=== PATIENT | female | born 1935 | race Caucasian/White ===

== ENCOUNTER 2020-04-08 08:05 | Outpatient (REF) | payer MEDICARE, SELFPAY | END 2020-04-08 08:06 | disposition home or self-care (01) | LOC: HO.HMGCLDS 08:05 | PROVIDERS: PCP Internal Medicine; Visit Provider Internal Medicine | DX: Z20.828 Contact with and (suspected) exposure to other viral communicable diseases (principal) | CPT/HCPCS: C9803; U0003 ==

== ENCOUNTER 2020-07-16 10:12 | Outpatient (REF) | payer MEDICARE, SELFPAY ==
[2020-07-16 10:59] LABS: MANUAL DIFF FLAG NO
[2020-07-16 11:05] LABS: Basophils Absolute Auto 0.1 X10*3/uL (0.0-0.2); Basophils Percent Auto 0.8 % (0-2); Eosinophils Absolute Auto 0.3 X10*3/uL (0.0-0.4); Eosinophils Percent Auto 3.6 % (0-4); Hematocrit 48.4 % (37-47); Hemoglobin 15.2 g/dl (12.0-16.0); Imm Gran Abs Auto 0.06 X10*3/uL (0.00-0.03); Imm Gran Pct Auto 0.8 % (0.0-0.4); Lymphocytes Absolute Auto 1.2 X10*3/uL (1.2-4.9); Lymphocytes Percent Auto 16.7 % (20-40); Mean Corpuscular HGB Conc 31.4 g/dl (31.0-35.0); Mean Corpuscular Hemoglobin 28.6 pg (27.0-33.0); Mean Corpuscular Volume 91.1 fL (80-98); Mean Platelet Volume 12.1 fL (9.4-12.3); Monocytes Absolute Auto 0.8 X10*3/uL (0.1-1.2); Monocytes Percent Auto 10.3 % (2-11); Neutrophils Absolute Auto 4.9 X10*3/uL (2.0-8.3); Neutrophils Percent Auto 67.8 % (45-73); Platelet Count 163 X10*3/uL (160-400); Red Blood Count 5.31 X10*6/uL (4.20-5.50); Red Cell Distribution Width 13.3 % (11.0-16.0); White Blood Count 7.3 X10*3/uL (4.8-10.8)
[2020-07-16 11:12] LABS: Estimated Average Glucose 157 mg/dL; Hemoglobin A1c % 7.1 %
[2020-07-16 11:47] LABS: Alanine Aminotransferase 20 U/L (0-31); Albumin Level 4.5 g/dL (3.5-5.0); Alkaline Phosphatase 69 U/L (39-117); Anion Gap 14 (12-20); Aspartate Amino Transferase 16 U/L (5-31); Bilirubin Total 0.7 mg/dL (0.0-1.0); Blood Urea Nitrogen 19 mg/dL (9-16); Calcium 9.8 mg/dL (8.4-10.2); Carbon Dioxide 25 mmol/L (22-29); Chloride 106 mmol/L (96-108); Cholesterol 165 mg/dL; Estimated Glomerular Filt Rate 43; Glucose Random 130 mg/dL (60-115); HDL Cholesterol 47 mg/dL; LDL Cholesterol Calculated 74 mg/dl; Potassium 4.9 mmol/L (3.3-5.1); Sodium 140 mmol/L (135-145); Total Protein 6.9 g/dL (6.5-8.0); Triglycerides 222 mg/dL
[2020-07-16 12:08] LABS: Creatinine Urine 60.32 mg/dL; Microalbum/Creatinine Ratio Ur 18.2 ug/mg cr
[2020-07-16 12:09] LABS: Free T4 (Free Thyroxine) 1.14 ng/dL (0.71-1.85); Thyroid Stimulating Hormone 1.56 uIU/mL (0.32-4.0); Vitamin D 25-OH Total 42.3 ng/mL (>30)
[2020-07-16 12:28] LABS: Folate > 20.0 ng/mL (> or = 4.0); Vitamin B12 997 pg/mL (200-900)
== END 2020-07-16 10:13 | disposition home or self-care (01) ==
LOC: HO.LAB 10:12
PROVIDERS: PCP Internal Medicine; Visit Provider Internal Medicine
DX: E11.65 Type 2 diabetes mellitus with hyperglycemia (principal); E03.9 Hypothyroidism, unspecified; I10 Essential (primary) hypertension; E78.00 Pure hypercholesterolemia, unspecified
CPT/HCPCS: 36415; 80053; 80061; 82043; 82306; 82607; 82746; 83036; 84439; 84443; 85025

== ENCOUNTER 2021-07-21 11:36 | Outpatient (REF) | payer MEDICARE, SELFPAY ==
[2021-07-21 13:38] LABS: MANUAL DIFF FLAG NO
[2021-07-21 13:39] LABS: Basophils Absolute Auto 0.1 X10*3/uL (0.0-0.2); Basophils Percent Auto 0.6 % (0-2); Eosinophils Absolute Auto 0.3 X10*3/uL (0.0-0.4); Eosinophils Percent Auto 3.7 % (0-4); Hematocrit 47.5 % (37.0-47.0); Hemoglobin 15.1 g/dl (12.0-16.0); Imm Gran Abs Auto 0.06 X10*3/uL (0.00-0.03); Imm Gran Pct Auto 0.7 % (0.0-0.4); Lymphocytes Absolute Auto 1.3 X10*3/uL (1.2-4.9); Lymphocytes Percent Auto 15.2 % (20-40); Mean Corpuscular HGB Conc 31.8 g/dl (31.0-35.0); Mean Corpuscular Hemoglobin 28.9 pg (27.0-33.0); Mean Platelet Volume 11.7 fL (9.4-12.3); Monocytes Absolute Auto 0.8 X10*3/uL (0.1-1.2); Monocytes Percent Auto 9.9 % (2-11); Neutrophils Absolute Auto 5.9 x10*3/uL (2.0-8.3); Neutrophils Percent Auto 69.9 % (45-73); Platelet Count 237 X10*3/uL (160-400); Red Blood Count 5.22 X10*6/uL (4.20-5.50); Red Cell Distribution Width 13.5 % (11.0-16.0); White Blood Count 8.5 X10*3/uL (4.8-10.8)
[2021-07-21 13:56] LABS: Alanine Aminotransferase 13 U/L (0-31); Albumin Level 4.3 g/dL (3.5-5.0); Alkaline Phosphatase 64 U/L (39-117); Anion Gap 15 (12-20); Aspartate Amino Transferase 14 U/L (5-31); Bilirubin Total 0.5 mg/dL (0.0-1.0); Blood Urea Nitrogen 22 mg/dL (9-16); Calcium 10.3 mg/dL (8.4-10.2); Carbon Dioxide 22 mmol/L (22-29); Chloride 107 mmol/L (96-108); Cholesterol 154 mg/dL; Estimated Glomerular Filt Rate 45; Glucose Random 118 mg/dL (60-115); HDL Cholesterol 41 mg/dL; LDL Cholesterol Calculated 55 mg/dl; Potassium 4.5 mmol/L (3.3-5.1); Sodium 139 mmol/L (135-145); Total Protein 6.8 g/dL (6.5-8.0); Triglycerides 294 mg/dL
[2021-07-21 14:13] LABS: Free T4 (Free Thyroxine) 1.14 ng/dL (0.71-1.85); Vitamin D 25-OH Total 43.8 ng/mL (>30)
[2021-07-21 14:27] LABS: Estimated Average Glucose 148 mg/dL; Hemoglobin A1c % 6.8 %
[2021-07-21 14:37] LABS: Creatinine Urine 60.97 mg/dL; Microalbum/Creatinine Ratio Ur 70.5 ug/mg cr
[2021-07-21 14:40] LABS: Folate > 20.0 ng/mL (> or = 4.0); Vitamin B12 800 pg/mL (200-900)
== END 2021-07-21 11:37 | disposition home or self-care (01) ==
LOC: HO.HMGCLDS 11:36
PROVIDERS: PCP Internal Medicine; Visit Provider Internal Medicine
DX: E11.65 Type 2 diabetes mellitus with hyperglycemia (principal); E78.00 Pure hypercholesterolemia, unspecified
CPT/HCPCS: 36415; 80053; 80061; 82043; 82306; 82607; 82746; 83036; 84439; 84443; 85025

== ENCOUNTER 2021-08-01 16:55 | Emergency (ER) | payer OTHER, MEDICARE, SELFPAY ==
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
[2021-08-01 17:19] VITALS: BP 163/76; BP 169/74; PULSE 82; PULSE 98; RESP 20; TEMP 36.7; O2SAT 97; BMI 33.4
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
[2021-08-01 19:27] VITALS: BP 162/90; PULSE 79; RESP 16; TEMP 36.6; O2SAT 95
[2021-08-01] MEDS: traMADoL HCL 50 MG TABLET PO (19:35)
[2021-08-01 21:55] VITALS: BP 148/77; PULSE 87; RESP 18; TEMP 36.9; O2SAT 96
[2021-08-01 22:00] LABS: Basophils Absolute Auto 0.1 X10*3/uL (0.0-0.2); Basophils Percent Auto 0.5 % (0-2); Eosinophils Absolute Auto 0.4 X10*3/uL (0.0-0.4); Eosinophils Percent Auto 2.6 % (0-4); Hematocrit 44.9 % (37.0-47.0); Hemoglobin 14.7 g/dl (12.0-16.0); Imm Gran Pct Auto 0.7 % (0.0-0.4); Lymphocytes Absolute Auto 1.4 X10*3/uL (1.2-4.9); Lymphocytes Percent Auto 9.7 % (20-40); MANUAL DIFF FLAG SCAN; Mean Corpuscular HGB Conc 32.7 g/dl (31.0-35.0); Mean Corpuscular Hemoglobin 29.3 pg (27.0-33.0); Mean Corpuscular Volume 89.4 fL (80.0-98.0); Mean Platelet Volume 10.9 fL (9.4-12.3); Monocytes Absolute Auto 1.6 X10*3/uL (0.1-1.2); Monocytes Percent Auto 11.4 % (2-11); Neutrophils Absolute Auto 10.8 x10*3/uL (2.0-8.3); Neutrophils Percent Auto 75.1 % (45-73); Platelet Count 234 X10*3/uL (160-400); Red Blood Count 5.02 X10*6/uL (4.20-5.50); Red Cell Distribution Width 13.3 % (11.0-16.0); SCAN SMEAR FLAG 1; White Blood Count 14.4 X10*3/uL (4.8-10.8)
[2021-08-01 22:05] LABS: INTERNATIONAL NORM RATIO 1.1 (0.9-1.1); Prothrombin Time 12.8 SEC (9.9-13.0)
[2021-08-01 22:08] LABS: Partial Thromboplastin Time 33.7 SEC (24.1-38.0)
[2021-08-01 22:14] LABS: Alanine Aminotransferase 16 U/L (0-31); Albumin Level 4.1 g/dL (3.5-5.0); Alkaline Phosphatase 67 U/L (39-117); Anion Gap 12 (12-20); Aspartate Amino Transferase 15 U/L (5-31); Bilirubin Total 0.5 mg/dL (0.0-1.0); Blood Urea Nitrogen 19 mg/dL (9-16); COVID-19 Test Negative (Negative); Calcium 10.3 mg/dL (8.4-10.2); Carbon Dioxide 24 mmol/L (22-29); Chloride 109 mmol/L (96-108); Creatinine Clr Calc Pharmacy 32.4; Estimated Glomerular Filt Rate 38; Glucose Random 179 mg/dL (60-115); Sodium 140 mmol/L (135-145); Total Protein 6.4 g/dL (6.5-8.0)
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
[2021-08-01 22:24] LABS: SLIDE REVIEW VERIFIED
[2021-08-01 23:22] VITALS: BP 146/70; PULSE 87; RESP 18; O2SAT 95
[2021-08-02] VITALS (7 sets, daily range): BP systolic 138–152; BP diastolic 64–95; PULSE 81–97; RESP 14–20; TEMP 36.6–36.9; O2SAT 94–96
[2021-08-02] MEDS: iohexoL 350 MG/ML 100 ML INFUS..BTL IV (00:22)
[2021-08-02] MEDS: traMADoL HCL 50 MG TABLET PO ×2 (06:23→11:21)
[2021-08-02 07:38] LABS: Glucose, Whole Blood 185 mg/dL (60-115)
--- NOTE | 2021-08-02 08:41 | PHA.MEDREC ---
Pharmacy Consult ? Medication Reconciliation Pharmacy has completed the medication reconciliation. No remarkable issues. Angie Granados, [facility]
--- NOTE | 2021-08-02 10:19 | MHC.CM.ED ---
Patient remains in ER. Physical therapy eval completed. Rehab is being recommended. [facility] not able to offer a bed. [facility] is reviewing. Met with patient and son, Regino at bedside. Copy of HCP obtained and placed in chart. If [facility] is not able to offer a bed, SNF choices: 1)[facility] 2) [facility]. Continue to monitor for d/c needs.
[2021-08-02] MEDS: Acetaminophen 325 MG TABLET 650 MG PO (11:20)
--- NOTE | 2021-08-02 11:58 | MHC.CM.ED ---
[facility] is able to offer a bed. They are in the process of obtaining insurance auth. Follow up orthopedic appointment has been arranged for 08/11 at 230pm. Continue to monitor for d/c needs.
--- NOTE | 2021-08-02 17:10 | MHC.CM.ED ---
Insurance authorization has not been obtained. Will touch base with [facility] liaison in the morning. Pt and family aware. Pt to remain in ED overnight. CM to follow for d/c needs.
[2021-08-03] VITALS (9 sets, daily range): BP systolic 116–152; BP diastolic 52–82; PULSE 75–92; RESP 14–22; TEMP 36.6–37.1; O2SAT 92–98
[2021-08-03] MEDS: traMADoL HCL 50 MG TABLET PO ×2 (00:43→10:33)
[2021-08-03] MEDS: Levothyroxine Sodium 125 MCG TABLET PO (05:18)
--- NOTE | 2021-08-03 05:18 | PC.NURSE ---
pt assisted on bedpan to void by marine technician and this RN. pt able to void, and is resting comfortably in bed. states pain is well controlled. +CSM to RLE
[2021-08-03 07:21] LABS: Glucose, Whole Blood 196 mg/dL (60-115)
[2021-08-03] MEDS: lisinopriL 10 MG TABLET PO (07:59)
[2021-08-03] MEDS: Cholecalciferol (Vitamin D3) 25 MCG TABLET 50 MCG PO (07:59)
[2021-08-03] MEDS: metFORMIN HCl 500 MG TABLET PO ×2 (07:59→21:28)
[2021-08-03] MEDS: Aspirin Enteric Coated 81 MG TABLET.DR PO (07:59)
[2021-08-03] MEDS: Folic Acid 1 MG TABLET PO (07:59)
[2021-08-03] MEDS: Cyanocobalamin (Vitamin B-12) 1,000 MCG TABLET 1000 MCG PO (08:00)
--- NOTE | 2021-08-03 12:01 | MHC.CM.ED ---
Received notification from [facility] that [facility] denied acute rehab. Regino made aware and would like to appeal the denial. Rossy at [facility] made aware. Continue to monitor for d/c needs.
[2021-08-03 13:41] LABS: Glucose, Whole Blood 132 mg/dL (60-115)
[2021-08-03] MEDS: Atorvastatin Calcium 10 MG TABLET PO (21:28)
--- NOTE | 2021-08-04 00:40 | PC.NURSE ---
pt assisted on bedpan to void
[2021-08-04 02:06] VITALS: BP 145/79; PULSE 83; RESP 22; O2SAT 92
[2021-08-04 04:06] VITALS: BP 128/60; PULSE 73; RESP 20; O2SAT 93
[2021-08-04] MEDS: Levothyroxine Sodium 125 MCG TABLET PO (06:02)
[2021-08-04 06:07] VITALS: BP 151/81; PULSE 90; RESP 20; O2SAT 94
--- NOTE | 2021-08-04 08:37 | PC.NURSE ---
pt assisted off bed pompa again. linens changed. raw reddness in folds of abdomen cleansed and cream applied. LLE elevated. brisk cap refill of toes and good csm
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
--- NOTE | 2021-08-04 10:44 | MHC.CM.ED ---
Addendum entered by Wendy Estes 08/04/21 10:56: Patient and daughter made aware of telephone call with [facility]. Original Note: Received telephone call from [facility] of [facility] about appeal to denial of acute rehab. Patient currently has a right bimalleolar fracture. Orthopedics didn't feel surgery was necessary at this time. She has a follow up appointment in 10 days. At that time, depending on how the fracture is healing, surgery may not be indicated. T/W explained patient is very independent at baseline, completes all of her ADL's by herself, still drives herself to doctors appointments, social events and stores as needed. Patient does not cook for herself, only because her sons dote on her and want to cook for her. She is aware that 3 hours of therapy would be required and she is an excellent candidate for acute rehab. She is very motivated to return to her baseline functional status as quickly as possible. Additional clinical information provided to Dora via fax. Continue to monitor for d/c needs.
--- NOTE | 2021-08-04 11:08 | PC.NURSE ---
up to commode w/o bearing weight on left foot.
[2021-08-04] MEDS: lisinopriL 10 MG TABLET PO (11:14)
[2021-08-04] MEDS: Cholecalciferol (Vitamin D3) 25 MCG TABLET 50 MCG PO (11:14)
[2021-08-04] MEDS: metFORMIN HCl 500 MG TABLET PO ×2 (11:14→20:44)
[2021-08-04 11:15] VITALS: BP 145/91; PULSE 102; RESP 18; O2SAT 97
[2021-08-04] MEDS: Folic Acid 1 MG TABLET PO (11:15)
[2021-08-04] MEDS: Aspirin Enteric Coated 81 MG TABLET.DR PO (11:15)
[2021-08-04 12:32] LABS: Appearance Urine CLEAR; Color Urine YELLOW; Glucose Urine UA NEG (NEG); Leukocyte Esterase Urine 3+ (NEG); Nitrite Urine NEG (NEG); Specific Gravity - Urine <= 1.005 (1.005-1.025); UACC Culture Trigger YES; Urine Blood NEG (NEG); Urine Ketones NEG (NEG); Urine Protein NEG (NEG-TRACE)
[2021-08-04 12:57] LABS: Squamous Epithelial Cell Urine 1+ /LPF
[2021-08-04 12:58] LABS: Bacteria Urine TRACE /LPF; RBC Urine 0 /HPF (0); Renal Epithelial Cells Urine TRACE /LPF
[2021-08-04 19:06] VITALS: BP 115/46; PULSE 89; RESP 15; TEMP 37; O2SAT 93
[2021-08-04] MEDS: Atorvastatin Calcium 10 MG TABLET PO (20:44)
[2021-08-05 02:56] VITALS: BP 87/60; PULSE 89; RESP 16; TEMP 36.7; O2SAT 92
[2021-08-05 03:01] VITALS: BP 104/63; PULSE 96; O2SAT 94
[2021-08-05] MEDS: Levothyroxine Sodium 125 MCG TABLET PO (07:42)
[2021-08-05] MEDS: Cyanocobalamin (Vitamin B-12) 1,000 MCG TABLET 1000 MCG PO (09:40)
[2021-08-05] MEDS: lisinopriL 10 MG TABLET PO (09:41)
[2021-08-05] MEDS: Folic Acid 1 MG TABLET PO (09:41)
[2021-08-05] MEDS: metFORMIN HCl 500 MG TABLET PO (09:41)
[2021-08-05] MEDS: Aspirin Enteric Coated 81 MG TABLET.DR PO (09:41)
[2021-08-05] MEDS: Cholecalciferol (Vitamin D3) 25 MCG TABLET 50 MCG PO (09:42)
--- NOTE | 2021-08-05 10:04 | MHC.CM.PN ---
Addendum entered by Jackie Zimmer 08/05/21 12:13: NEGATIVE COVID RESULTS SENT TO [facility]. THEY ARE REQUESTING 1600 TRANSPORT BE ARRANGED SON, PT AND NURSE AWARE [facility] PROVIDED A PHONE NUMBER OF [phone] FOR NURSE TO NURSE REPORT. NUMBER FORWARDED TO PTS NURSE Original Note: [facility] HAS AUTHORIZED ACUTE REHAB PER DISCUSSION WITH PT/FAMILY, PREFERENCE IS STILL [facility] IS ABLE TO TAKE PT AT 1600 HOURS PENDING NEG COVID RESULTS
[2021-08-05 10:39] LABS: COVID-19 Test Negative (Negative)
[2021-08-05 11:02] VITALS: BP 114/60; PULSE 90; RESP 18; TEMP 37.2; O2SAT 94
--- NOTE | 2021-08-05 11:03 | PC.NURSE ---
pt has been resting queitly with rle elevated. on and off bed pain and commode as needed. requires full assist for all transfers.
--- NOTE | 2021-08-05 11:52 | PC.NURSE ---
RN assumed care at 11am. Pt alert and oriented x4, calm and cooperative. Pt denies pain. Vitals stable. Pt educated on care plan and being discharged to facility, pt agrees to plan.
--- NOTE | 2021-08-05 12:30 | PC.NURSE ---
rn to rn with at [facility].
--- NOTE | 2021-08-05 15:36 | PC.NURSE ---
Pt alert and oriented x4, calm and cooperative. Denies pain at rest. Pt voiding without issues this shift. IV rmeoved. Vitals stable. Educated on dc and stated an understanding. Report given to rehab by EZEKIEL Tang.
[2021-08-05 15:37] VITALS: BP 116/74; PULSE 74; RESP 16; TEMP 37.1; O2SAT 95
== END 2021-08-05 15:38 | disposition skilled nursing facility (03) ==
PROVIDERS: Physician Assistant; Physician Assistant Medical; Emergency Provider Internal Medicine; PCP Internal Medicine
DX: S82.891A Other fracture of right lower leg, initial encounter for closed fracture (principal); M54.2 Cervicalgia; M25.571 Pain in right ankle and joints of right foot; M54.6 Pain in thoracic spine; R10.2 Pelvic and perineal pain; R51.9 Headache, unspecified; E11.9 Type 2 diabetes mellitus without complications; I10 Essential (primary) hypertension; V43.52XA Car driver injured in collision with other type car in traffic accident, initial encounter; Y93.9 Activity, unspecified; Y92.410 Unspecified street and highway as the place of occurrence of the external cause; Y99.9 Unspecified external cause status; Z20.822 Contact with and (suspected) exposure to COVID-19; Z79.899 Other long term (current) drug therapy; Z79.84 Long term (current) use of oral hypoglycemic drugs; Z79.82 Long term (current) use of aspirin
CPT/HCPCS: 29515; 36415; 51702; 70450; 71260; 72125; 73600; 73620; 74177; 80053; 81001; 81003; 82947; 85025; 85610; 85730; 87086; 87635; 97110; 97162; 97166; 99285; Q9967

== ENCOUNTER 2021-08-15 13:57 | Outpatient (REF) | payer OTHER, MEDICARE, SELFPAY ==
--- NOTE | ~2021-08-15 | XR_ITS ---
EXAMINATION: XR ANKLE, RIGHT CLINICAL INFORMATION: Pain right ankle. COMPARISON: None. TECHNIQUE: AP, lateral, and mortise views of the right ankle. FINDINGS: There is a minimally displaced oblique fracture distal fibula and oblique fracture medial malleolus distal tibia. There is bimalleolar soft tissue swelling. The ankle mortise and subtalar joints are normal. There is a small calcaneal heel and retrocalcaneal enthesophytes. There is a dorsal talonavicular joint and enthesophyte. XR/XR ankle RT min 3V IMPRESSION: Minimally displaced fracture lateral and medial malleoli with bimalleolar soft tissue swelling. Degenerative arthritic changes talonavicular joint. [id number]-[id number]-sized calcaneal heel and retrocalcaneal enthesophytes.
== END 2021-08-15 13:58 | disposition home or self-care (01) ==
LOC: HO.HOSX 13:57
PROVIDERS: Visit Provider Physician Assistant
DX: S82.891A Other fracture of right lower leg, initial encounter for closed fracture (principal)
CPT/HCPCS: 73610

== ENCOUNTER 2021-08-17 13:56 | Observation (INO) | payer OTHER, MEDICARE, SELFPAY ==
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
--- NOTE | 2021-08-17 | ECG_ITS ---
Test Reason : HTN Blood Pressure : / mmHG Vent. Rate : 088 BPM Atrial Rate : 088 BPM P-R Int : 156 ms QRS Dur : 102 ms QT Int : 360 ms P-R-T Axes : 071 -15 017 degrees QTc Int : 435 ms Normal sinus rhythm Minimal voltage criteria for LVH, may be normal variant ( Andrea product ) Cannot rule out Inferior infarct , age undetermined Abnormal ECG When compared with ECG of 11-MAY-2017 13:25, No significant change was found Referred By: Patricia Donnelly Electronically Signed By:MECCA MERINO MD
--- NOTE | ~2021-08-17 | XR_ITS ---
EXAMINATION: XR ANKLE, RIGHT CLINICAL INFORMATION: Follow-up fracture COMPARISON: Previous x-ray 08/17/2021 TECHNIQUE: AP, lateral, and mortise views of the right ankle. FINDINGS: There are fractures of the medial and lateral malleolus. These do not appear appreciably changed. No new fracture is seen. No ankle mortise widening is seen. There is soft tissue arterial calcification. There are calcaneal spurs. There is an overlying cast. XR/XR ankle RT min 3V IMPRESSION: No change in medial and lateral malleolar fractures.
--- NOTE | ~2021-08-17 | XR_ITS ---
EXAMINATION: XR ANKLE, RIGHT CLINICAL INFORMATION: Right ankle fracture COMPARISON: Previous x-ray most recent 08/15/2021 TECHNIQUE: AP view of the right ankle. FINDINGS: There is a new overlying cast. There is no change in alignment of the medial and lateral malleolar fractures. XR/XR ankle RT 2V IMPRESSION: No change in alignment of the medial and lateral malleolar fractures.
[2021-08-17 12:51] VITALS: BMI 34.0
[2021-08-17 12:55] VITALS: BP 132/59; PULSE 91; RESP 18; TEMP 36.7; O2SAT 98
[2021-08-17] MEDS: Lactated Ringers 1,000 ML 100 ML IVCONT (12:58)
[2021-08-17 13:07] LABS: Glucose, Whole Blood 118 mg/dL (60-115)
--- NOTE | 2021-08-17 13:44 | PC.NURSE ---
plan change for no surgical procedure due to wound at right ankle. plan to cast in preop, covid swab for admission, done and sent down.
[2021-08-17 14:22] LABS: COVID-19 Test Negative (Negative)
--- NOTE | 2021-08-17 15:10 | PC.NURSE ---
no surgery to be done due to open pressure wound on rt ankle. casted at bedside and to be admitted to observation. report to serjio tolentino on . transferred.
[2021-08-17 16:04] LABS: Glucose, Whole Blood 96 mg/dL (60-115)
[2021-08-17 16:26] VITALS: BP 137/55; PULSE 73; RESP 18; TEMP 36.4; O2SAT 96
[2021-08-17] MEDS: 0.9 % Sodium Chloride Flush 3 ML SYRINGE IVFLUSH (17:09)
[2021-08-17 19:30] VITALS: BP 118/56; PULSE 79; RESP 18; TEMP 36.6; O2SAT 96
[2021-08-17] MEDS: Atorvastatin Calcium 10 MG TABLET PO (19:53)
[2021-08-17 23:41] VITALS: BP 120/54; PULSE 65; RESP 17; TEMP 36.4; O2SAT 96
[2021-08-18] VITALS (7 sets, daily range): BP systolic 120–146; BP diastolic 55–70; PULSE 58–75; RESP 14–20; TEMP 36.2–37.1; O2SAT 95–97
[2021-08-18] MEDS: Lactated Ringers 1,000 ML 100 ML IVCONT ×2 (00:35→10:07)
[2021-08-18] MEDS: Levothyroxine Sodium 125 MCG TABLET PO (06:01)
[2021-08-18 08:12] LABS: Glucose, Whole Blood 155 mg/dL (60-115)
--- NOTE | 2021-08-18 09:04 | PM.PNORT ---
Subjective Subjective Date of Service: 08/18/21 Interval history: Patient is resting comfortably in bed. No overnight events. Pain is well manged. No additional complaints. Physical Exam Vital Signs: Vital Signs: Last Vital Signs Temp 97.4 F 08/18/21 07:29 Pulse 74 08/18/21 07:29 Resp 18 08/18/21 07:29 BP 138/63 08/18/21 07:29 Pulse Ox 96 08/18/21 07:29 BMI result Body Mass Index 34.0 Const: General: cooperative, healthy appearing and no acute distress Resp: Effort & Inspection: normal respiratory effort and able to speak in complete sentences Cardio: Rate: regular rate Peripheral pulses: Peripheral pulses 2+ throughout GI: Palpation (GI): Soft to palpation Skin: Lesions: no lesions Rashes: no rashes Extrem: Other: Right ankle Cast is clean, dry, and intact. No reports of hot spots. MEdial dressing clean. dry, and intact. NVI. Procedures Date of Service Date of Service: 08/18/21 Progress Note: A&P Assessment and plan (1) Ankle fracture: Status: Acute Assessment and Plan: Right lower extremity NWB Elevate for swelling Keep cast clean, dry, and intact Medial sided dressing changes daily Pain mangement Awaiting case management placement for rehab Time Spent With Patient Time: Total time spent is greater than 50% in coordination of care (as documented) at patient's floor/unit and/or counseling patient: Quality Stroke Does the patient have a stroke diagnosis?: No VTE Prior VTE?: No VTE Risk Level:: Medical - low VTE Device Contraindication: N/A - Device Ordered VTE Drug Contraindication: N/A - Med Ordered
[2021-08-18] MEDS: Folic Acid 1 MG TABLET PO (09:44)
[2021-08-18] MEDS: Cholecalciferol (Vitamin D3) 25 MCG TABLET 50 MCG PO (09:44)
[2021-08-18] MEDS: lisinopriL 10 MG TABLET PO (09:44)
[2021-08-18] MEDS: Aspirin Enteric Coated 81 MG TABLET.DR PO (09:44)
[2021-08-18 11:38] LABS: Glucose, Whole Blood 148 mg/dL (60-115)
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
[2021-08-18] MEDS: cephALEXin 500 MG CAPSULE PO (17:47)
[2021-08-18 18:01] LABS: Hematocrit 38.2 % (37.0-47.0); Hemoglobin 12.3 g/dl (12.0-16.0); Mean Corpuscular HGB Conc 32.2 g/dl (31.0-35.0); Mean Corpuscular Hemoglobin 28.7 pg (27.0-33.0); Mean Corpuscular Volume 89.3 fL (80.0-98.0); Mean Platelet Volume 11.3 fL (9.4-12.3); Platelet Count 247 X10*3/uL (160-400); Red Blood Count 4.28 X10*6/uL (4.20-5.50); White Blood Count 8.6 X10*3/uL (4.8-10.8)
--- NOTE | 2021-08-18 19:13 | P.CONWO_ITS ---
History of Present Illness Data of Consult Service Date: 08/18/21 Requesting physician: Yared Riley Primary Care Provider: Klever Jean MD [facility] Reason for consult: right ankle wound The pt is an 86 year old female who has a wound on medial right ankle. she broke her leg and needed to have it repaired but Ortho doesnt want surgery wth this wound present. As a result plan is to cast and try to close the wound. 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 Type 2 diabetes mellitus with hyperglycemia Functional capacity: independent ambulation Family History Father Hypertension CVD (cardiovascular disease) Cancer Mother Hypertension Surgical History History of appendectomy History of cholecystectomy History of skin cancer History of tonsillectomy History of total abdominal hysterectomy and bilateral salpingo-oophorectomy Social History Housing: House Alcohol intake: former Patient Tobacco Use Status: Never used Tobacco e-Cigarette/Vaping Use: Never Used Second Hand Smoke Exposure: No Use of substances other than those prescribed or required for medical reasons: No Advance Directives: No Advance Directives Information Provided: Yes Advance Directives Date on File: 08/03/21 Recently lost weight without trying: No service: No Current occupational status: retired Current occupational exposures/hazards: No Cognitive needs: No Hearing needs: Yes Vision needs: Yes Meds Allergies Allergy/AdvReac Type Severity Reaction Status Date / Time No Known Allergies Allergy Mild NONE Verified 08/15/21 15:36 Active Medications: Current Medications Acetaminophen (Acetaminophen 325 Mg Tablet) 650 mg PO Q6H PRN PRN Reason: Pain, Mild (Pain Scale 1-3) Aspirin (Aspirin Enteric Coated 81 Mg Tablet.) 81 mg PO DAILY [facility] Last Admin: 08/21/21 08:23 Dose: 81 mg Documented by: Atorvastatin Calcium (Atorvastatin Calcium 10 Mg Tablet) 10 mg PO BEDTIME [facility] Last Admin: 08/21/21 20:04 Dose: 10 mg Documented by: Cephalexin HCl (Cephalexin 500 Mg Capsule) 500 mg PO Q8H [facility] Last Admin: 08/21/21 17:49 Dose: 500 mg Documented by: Docusate Sodium (Docusate Sodium 100 Mg Capsule) 100 mg PO BID [facility] Last Admin: 08/21/21 20:04 Dose: 100 mg Documented by: Folic Acid (Folic Acid 1 Mg Tablet) 1 mg PO DAILY [facility] Last Admin: 08/21/21 08:23 Dose: 1 mg Documented by: Levothyroxine Sodium (Levothyroxine Sodium 125 Mcg Tablet) 125 mcg PO DAILY@06 00 [facility] Last Admin: 08/21/21 05:22 Dose: 125 mcg Documented by: Lisinopril (Lisinopril 10 Mg Tablet) 10 mg PO DAILY [facility]; Protocol Last Admin: 08/21/21 08:23 Dose: 10 mg Documented by: Oxycodone HCl (Oxycodone Hcl Immed Release 5 Mg Tablet) 5 mg PO Q6H PRN PRN Reason: Pain, Moderate (Pain Scale 4-6 Sodium Chloride (0.9 % Sodium Chloride Flush 3 Ml Syringe) 3 ml IVFLUSH QSHIFT [facility] Last Admin: 08/21/21 20:06 Dose: 3 ml Documented by: Vitamin D (Cholecalciferol (Vitamin D3) 25 Mcg Tablet) 50 mcg PO DAILY [facility] Last Admin: 08/21/21 08:22 Dose: 50 mcg Documented by: Home Medications Medication Instructions Recorded Confirmed Last Taken Type aspirin 81 mg tablet,delayed 81 mg PO DAILY 02/12/20 08/17/21 08/01/21 History release (Adult Aspirin Regimen) cholecalciferol (vitamin D3) 50 50 mcg PO DAILY 02/12/20 08/17/21 08/01/21 History mcg (2,000 unit) capsule levothyroxine 125 mcg tablet 125 mcg PO DAILY 08/02/21 08/17/21 08/01/21 06:00 History simvastatin 20 mg tablet 20 mg PO BEDTIME 08/02/21 08/17/21 08/01/21 History tramadol 50 mg tablet 50 mg PO QID PRN 08/02/21 08/17/21 08/01/21 12:00 History cephalexin 500 mg capsule 1 cap PO QID 08/17/21 08/17/21 Unknown History Physical Exam Vital Signs and Narrative: Vital Signs: Last Vital Signs Temp 97.7 F 08/21/21 23:46 Pulse 71 08/21/21 23:46 Resp 14 08/21/21 23:46 BP 116/64 08/21/21 23:46 Pulse Ox 93 08/21/21 23:46 BMI result Body Mass Index 30.1 Skin: Other: right leg/foot casted but small cutout in right ankle area to allow for wound treatment. the left foot has a palpable pulse, the right one not accessible due to the cast but exposed toes are warm, good cap refill wound is down to fat and about 1 cm some mild erythema surrounding but doesnt look like cellultis Results Labs CBC and Chem 7: 08/18/21 17:46 Labs: Laboratory Results - last 24 hr 08/21/21 08/21/21 08/21/21 07:28 12:03 16:38 POC Glucose 118 H 125 H 116 H 08/21/21 20:07 POC Glucose 143 H Assessment and Plan (1) Type 2 diabetes mellitus with foot ulcer: Status: Acute Plan pt is a 86 year old female with probable diabetic ankle wound not pressure - good perfusion. now with broken lower leg. cont with cast and ortho to direct treatment. consider woundress here and cover and wrap within the cast. nursing team aware
[2021-08-18 19:56] LABS: Glucose, Whole Blood 149 mg/dL (60-115)
[2021-08-18] MEDS: Atorvastatin Calcium 10 MG TABLET PO (20:30)
[2021-08-18] MEDS: 0.9 % Sodium Chloride Flush 3 ML SYRINGE IVFLUSH (20:31)
[2021-08-19] MEDS: cephALEXin 500 MG CAPSULE PO ×3 (00:03→17:18)
[2021-08-19 03:55] VITALS: BP 121/59; PULSE 84; RESP 17; TEMP 36.3; O2SAT 95
[2021-08-19] MEDS: Levothyroxine Sodium 125 MCG TABLET PO (05:23)
[2021-08-19 07:23] VITALS: BP 134/65; PULSE 66; RESP 16; TEMP 36; O2SAT 96
[2021-08-19 07:37] LABS: Glucose, Whole Blood 127 mg/dL (60-115)
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
[2021-08-19] MEDS: Folic Acid 1 MG TABLET PO (09:05)
[2021-08-19] MEDS: Cholecalciferol (Vitamin D3) 25 MCG TABLET 50 MCG PO (09:05)
[2021-08-19] MEDS: Aspirin Enteric Coated 81 MG TABLET.DR PO (09:05)
[2021-08-19] MEDS: lisinopriL 10 MG TABLET PO (09:05)
[2021-08-19] MEDS: 0.9 % Sodium Chloride Flush 3 ML SYRINGE IVFLUSH ×3 (09:06→20:24)
[2021-08-19 10:01] VITALS: BP 134/65; PULSE 66; O2SAT 96
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
[2021-08-19 11:26] VITALS: BP 140/60; PULSE 69; RESP 17; TEMP 36.8; O2SAT 97
[2021-08-19 11:58] LABS: Glucose, Whole Blood 149 mg/dL (60-115)
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
[2021-08-19 15:42] VITALS: BP 127/59; PULSE 73; RESP 18; TEMP 36.7; O2SAT 96
[2021-08-19 16:28] LABS: Glucose, Whole Blood 133 mg/dL (60-115)
[2021-08-19 19:55] VITALS: BP 136/68; PULSE 79; RESP 17; TEMP 36.6; O2SAT 95
[2021-08-19] MEDS: Atorvastatin Calcium 10 MG TABLET PO (20:24)
[2021-08-19 21:20] LABS: Glucose, Whole Blood 163 mg/dL (60-115)
[2021-08-20] VITALS (7 sets, daily range): BP systolic 123–146; BP diastolic 54–69; PULSE 64–77; RESP 16–18; TEMP 36.4–36.9; O2SAT 94–97; BMI 30.1
[2021-08-20] MEDS: cephALEXin 500 MG CAPSULE PO ×3 (00:35→16:28)
[2021-08-20] MEDS: Levothyroxine Sodium 125 MCG TABLET PO (05:39)
[2021-08-20 08:08] LABS: Glucose, Whole Blood 125 mg/dL (60-115)
[2021-08-20] MEDS: Folic Acid 1 MG TABLET PO (08:36)
[2021-08-20] MEDS: lisinopriL 10 MG TABLET PO (08:36)
[2021-08-20] MEDS: Aspirin Enteric Coated 81 MG TABLET.DR PO (08:36)
[2021-08-20] MEDS: Cholecalciferol (Vitamin D3) 25 MCG TABLET 50 MCG PO (08:36)
[2021-08-20] MEDS: 0.9 % Sodium Chloride Flush 3 ML SYRINGE IVFLUSH ×3 (08:37→20:06)
[2021-08-20 12:18] LABS: Glucose, Whole Blood 131 mg/dL (60-115)
[2021-08-20 16:19] LABS: Glucose, Whole Blood 135 mg/dL (60-115)
[2021-08-20 19:52] LABS: Glucose, Whole Blood 182 mg/dL (60-115)
[2021-08-20] MEDS: Atorvastatin Calcium 10 MG TABLET PO (20:06)
[2021-08-21] MEDS: cephALEXin 500 MG CAPSULE PO ×3 (00:54→17:49)
[2021-08-21 04:00] VITALS: BP 119/68; PULSE 70; RESP 18; TEMP 36.8; O2SAT 96
[2021-08-21] MEDS: Levothyroxine Sodium 125 MCG TABLET PO (05:22)
[2021-08-21 07:30] VITALS: BP 128/65; PULSE 68; RESP 18; TEMP 37.1; O2SAT 95
[2021-08-21 08:02] LABS: Glucose, Whole Blood 118 mg/dL (60-115)
[2021-08-21] MEDS: Cholecalciferol (Vitamin D3) 25 MCG TABLET 50 MCG PO (08:22)
[2021-08-21] MEDS: Folic Acid 1 MG TABLET PO (08:23)
[2021-08-21] MEDS: lisinopriL 10 MG TABLET PO (08:23)
[2021-08-21] MEDS: Docusate Sodium 100 MG CAPSULE PO ×2 (08:23→20:04)
[2021-08-21] MEDS: 0.9 % Sodium Chloride Flush 3 ML SYRINGE IVFLUSH ×3 (08:23→20:06)
[2021-08-21] MEDS: Aspirin Enteric Coated 81 MG TABLET.DR PO (08:23)
[2021-08-21 12:00] VITALS: BP 118/66; PULSE 64; RESP 18; TEMP 37.1; O2SAT 95
[2021-08-21 12:10] LABS: Glucose, Whole Blood 125 mg/dL (60-115)
[2021-08-21 15:48] VITALS: BP 132/66; PULSE 69; RESP 14; TEMP 37.4; O2SAT 95
[2021-08-21 17:03] LABS: Glucose, Whole Blood 116 mg/dL (60-115)
[2021-08-21 19:36] VITALS: BP 115/60; PULSE 66; RESP 14; TEMP 37.1; O2SAT 96
[2021-08-21] MEDS: Atorvastatin Calcium 10 MG TABLET PO (20:04)
[2021-08-21 20:22] LABS: Glucose, Whole Blood 143 mg/dL (60-115)
[2021-08-21 23:46] VITALS: BP 116/64; PULSE 71; RESP 14; TEMP 36.5; O2SAT 93
[2021-08-22] VITALS (7 sets, daily range): BP systolic 103–127; BP diastolic 55–70; PULSE 57–82; RESP 14–18; TEMP 36.2–36.9; O2SAT 94–95
[2021-08-22] MEDS: cephALEXin 500 MG CAPSULE PO ×3 (02:29→17:19)
[2021-08-22] MEDS: Levothyroxine Sodium 125 MCG TABLET PO (05:45)
[2021-08-22 07:30] LABS: Glucose, Whole Blood 117 mg/dL (60-115)
[2021-08-22] MEDS: Docusate Sodium 100 MG CAPSULE PO ×2 (11:02→19:46)
[2021-08-22] MEDS: Cholecalciferol (Vitamin D3) 25 MCG TABLET 50 MCG PO (11:02)
[2021-08-22] MEDS: Aspirin Enteric Coated 81 MG TABLET.DR PO (11:02)
[2021-08-22] MEDS: Folic Acid 1 MG TABLET PO (11:02)
[2021-08-22] MEDS: lisinopriL 10 MG TABLET PO (11:02)
[2021-08-22] MEDS: 0.9 % Sodium Chloride Flush 3 ML SYRINGE IVFLUSH (11:03)
[2021-08-22 11:46] LABS: Glucose, Whole Blood 146 mg/dL (60-115)
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
[2021-08-22 16:33] LABS: Glucose, Whole Blood 119 mg/dL (60-115)
--- NOTE | 2021-08-22 16:40 | PC.NURSE ---
IV leaking. Ok to leave out IV per Leana HOWARD.
[2021-08-22] MEDS: Atorvastatin Calcium 10 MG TABLET PO (19:46)
[2021-08-22 20:12] LABS: Glucose, Whole Blood 172 mg/dL (60-115)
[2021-08-23] VITALS (7 sets, daily range): BP systolic 105–131; BP diastolic 46–65; PULSE 62–80; RESP 16–18; TEMP 36.1–36.7; O2SAT 94–96
[2021-08-23] MEDS: cephALEXin 500 MG CAPSULE PO ×3 (00:40→17:06)
[2021-08-23] MEDS: Levothyroxine Sodium 125 MCG TABLET PO (05:31)
--- NOTE | 2021-08-23 07:34 | PM.EVENT ---
Event Note Date of Service: 08/22/21 Event Note: Late entry- patient seen and case mgmnt continuing to obtain STR placement wound care has seen patient and is recommending daily dressing changes.
[2021-08-23 07:40] LABS: Glucose, Whole Blood 113 mg/dL (60-115)
[2021-08-23] MEDS: Aspirin Enteric Coated 81 MG TABLET.DR PO (08:58)
[2021-08-23] MEDS: Docusate Sodium 100 MG CAPSULE PO ×2 (08:58→20:29)
[2021-08-23] MEDS: Cholecalciferol (Vitamin D3) 25 MCG TABLET 50 MCG PO (08:58)
[2021-08-23] MEDS: lisinopriL 10 MG TABLET PO (08:59)
[2021-08-23] MEDS: Folic Acid 1 MG TABLET PO (08:59)
[2021-08-23 11:29] LABS: Glucose, Whole Blood 124 mg/dL (60-115)
--- NOTE | 2021-08-23 14:20 | MHC.CM.PN ---
Addendum entered by Christen Huynh, RN 08/23/21 15:47: CM RECEIVED A MESSAGE FROM [facility] REPORTING THEY WILL REVIEW W/SENIOR COST ANALYST, CM STILL WAITING TO HERE FROM [facility] AND [address] [place] [address]. PT'S SON/HCP CAME TO NURSES STATION AT TIME OF THIS NOTE AND REPORTS [facility] AND THEN [facility] ARE PREFERRED FACILITIES. Original Note: PRATIK HAS RECEIVED INTEREST FROM 2 FACILITIES [facility] AND [address] [place] [address], PRATIK MET W/PT HOWEVER SHE IS DEFERRING TO SON/HCP PRATIK MATOS CONTACTED SHAWNA [phone], SHAWNA GIVEN NAMES OF FACILITIES AND REPORTS IF PT CAN GET INTO [facility] THAT WOULD BE PREFERRED AND WILL FOLLOW-UP W/PREFERRED SNF IN [place] PT WILL NOT BE APPROVED FOR ACUTE REHAB.
[2021-08-23 16:20] LABS: Glucose, Whole Blood 143 mg/dL (60-115)
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
[2021-08-23] MEDS: Atorvastatin Calcium 10 MG TABLET PO (20:29)
[2021-08-23 20:45] LABS: Glucose, Whole Blood 103 mg/dL (60-115)
[2021-08-24] MEDS: cephALEXin 500 MG CAPSULE PO ×3 (00:14→17:53)
[2021-08-24 04:00] VITALS: BP 106/49; PULSE 64; RESP 14; TEMP 36.5; O2SAT 96
[2021-08-24] MEDS: Levothyroxine Sodium 125 MCG TABLET PO (05:44)
--- NOTE | 2021-08-24 07:40 | PM.PNORT ---
Subjective Subjective Date of Service: 08/24/21 Interval history: LOS 7 Right ankle fracture -resting in bed with cast in place -tolerating pain well Physical Exam Vital Signs: Vital Signs: Last Vital Signs Temp 97.7 F 08/24/21 04:00 Pulse 64 08/24/21 04:00 Resp 14 08/24/21 04:00 BP 106/49 L 08/24/21 04:00 Pulse Ox 96 08/24/21 04:00 BMI result Body Mass Index 30.1 Extrem: Other: right ankle cast in place, medial wound closed without purulance, localized erythema surrounding scab. Procedures Date of Service Date of Service: 08/24/21 Progress Note: A&P Assessment and plan (1) Ankle fracture: Status: Acute Assessment and Plan: continue wound care dispo-pending approval for STR Time Spent With Patient Time: Total time spent is greater than 50% in coordination of care (as documented) at patient's floor/unit and/or counseling patient: Quality Stroke Does the patient have a stroke diagnosis?: No VTE Prior VTE?: No VTE Risk Level:: Medical - low VTE Device Contraindication: N/A - Device Ordered VTE Drug Contraindication: N/A - Med Ordered
[2021-08-24 07:43] VITALS: BP 126/59; PULSE 65; RESP 17; TEMP 36.9; O2SAT 95
[2021-08-24 07:46] LABS: Glucose, Whole Blood 130 mg/dL (60-115)
[2021-08-24] MEDS: Cholecalciferol (Vitamin D3) 25 MCG TABLET 50 MCG PO (09:21)
[2021-08-24] MEDS: Folic Acid 1 MG TABLET PO (09:22)
[2021-08-24] MEDS: lisinopriL 10 MG TABLET PO (09:22)
[2021-08-24] MEDS: Aspirin Enteric Coated 81 MG TABLET.DR PO (09:22)
[2021-08-24] MEDS: Docusate Sodium 100 MG CAPSULE PO ×2 (09:22→19:54)
[2021-08-24 10:33] VITALS: BP 126/59; PULSE 65; O2SAT 95
[2021-08-24 11:16] VITALS: BP 114/55; PULSE 68; RESP 16; TEMP 36.1; O2SAT 94
[2021-08-24 11:44] LABS: Glucose, Whole Blood 110 mg/dL (60-115)
[2021-08-24 15:29] VITALS: BP 121/67; PULSE 62; RESP 18; TEMP 36.6; O2SAT 95
[2021-08-24 15:50] LABS: Glucose, Whole Blood 138 mg/dL (60-115)
[2021-08-24 19:17] VITALS: BP 110/57; PULSE 72; RESP 18; TEMP 36.6; O2SAT 95
[2021-08-24 19:46] LABS: Glucose, Whole Blood 172 mg/dL (60-115)
[2021-08-24] MEDS: Atorvastatin Calcium 10 MG TABLET PO (19:55)
[2021-08-25] VITALS (8 sets, daily range): BP systolic 108–134; BP diastolic 49–64; PULSE 62–87; RESP 16–20; TEMP 36.2–37.1; O2SAT 95–97
[2021-08-25] MEDS: cephALEXin 500 MG CAPSULE PO ×2 (00:41→09:46)
[2021-08-25] MEDS: Levothyroxine Sodium 125 MCG TABLET PO (05:56)
[2021-08-25 08:07] LABS: Glucose, Whole Blood 123 mg/dL (60-115)
[2021-08-25] MEDS: Folic Acid 1 MG TABLET PO (09:46)
[2021-08-25] MEDS: Aspirin Enteric Coated 81 MG TABLET.DR PO (09:46)
[2021-08-25] MEDS: Docusate Sodium 100 MG CAPSULE PO ×2 (09:46→20:17)
[2021-08-25] MEDS: lisinopriL 10 MG TABLET PO (09:46)
[2021-08-25] MEDS: Cholecalciferol (Vitamin D3) 25 MCG TABLET 50 MCG PO (09:46)
[2021-08-25 11:55] LABS: Glucose, Whole Blood 139 mg/dL (60-115)
--- NOTE | 2021-08-25 15:02 | MHC.CM.PN ---
EMR REVIEWED, PER NATHANIEL INS REPORTING PT UNDER CLINICAL REVIEW, CM DISCUSSED W/ORTH THEY SENT SURGEON REQUEST FOR DOC TO DOC HOWEVER PER ORTHO PT DOES NOT NEED ACUTE REHAB AND STR IS SUFFICIENT AND WHAT HAS BEEN RECOMMENDED BY PT/OT, PRATIK UOPDATED NATHANIEL AND SURINDER CARRANZA HAS GONE FOR AUTH.
[2021-08-25 16:40] LABS: Glucose, Whole Blood 140 mg/dL (60-115)
[2021-08-25] MEDS: Atorvastatin Calcium 10 MG TABLET PO (20:17)
[2021-08-25 20:49] LABS: Glucose, Whole Blood 129 mg/dL (60-115)
[2021-08-26 03:55] VITALS: BP 123/61; PULSE 61; RESP 16; TEMP 36.4; O2SAT 96
[2021-08-26] MEDS: Levothyroxine Sodium 125 MCG TABLET PO (05:38)
[2021-08-26 07:16] VITALS: BP 135/60; PULSE 64; RESP 20; TEMP 36.1; O2SAT 97
[2021-08-26 07:31] LABS: Glucose, Whole Blood 127 mg/dL (60-115)
[2021-08-26] MEDS: Cholecalciferol (Vitamin D3) 25 MCG TABLET 50 MCG PO (10:40)
[2021-08-26] MEDS: Folic Acid 1 MG TABLET PO (10:41)
[2021-08-26] MEDS: lisinopriL 10 MG TABLET PO (10:41)
[2021-08-26] MEDS: Docusate Sodium 100 MG CAPSULE PO (10:41)
[2021-08-26] MEDS: Aspirin Enteric Coated 81 MG TABLET.DR PO (10:41)
[2021-08-26 11:10] LABS: Glucose, Whole Blood 143 mg/dL (60-115)
[2021-08-26 11:13] VITALS: BP 105/51; PULSE 67; RESP 20; TEMP 36.3; O2SAT 97
[2021-08-26 11:16] VITALS: BP 135/60; PULSE 64; O2SAT 97
--- NOTE | 2021-08-26 11:26 | MHC.CM.PN ---
SURINDER CARRANZA HAS RECEIVED INS AUTH, PLAN FOR D/C TODAY PENDING RAPID COVID W/ACTION FOR BLS TRANSPORT
--- NOTE | 2021-08-26 11:36 | P.DS_ITS ---
DS: Providers Provider Date of Service: 08/26/21 Date of admission: 08/17/21 13:56 Primary care physician: Klever Jean MD Consults: 08/17/21 17:25 Consult to Hospitalist Routine Consulting Provider: Hospitalist Reason For Exam: diabetic 08/18/21 11:10 Consult to Wound Care Routine Consulting Provider: Crystal Lipscomb Reason for consultation: diabetic wound on ankle. Ankle fracture. Has provider been notified: No 08/26/21 09:33 Consult to Wound Care Stat Consulting Provider: [facility] Wound Care Management Reason for consultation: ankle DS: Diagnosis Discharge Diagnosis (1) Ankle fracture: Status: Acute DS: Summary Hospital Course Hospital Course: The patient did to the hospital under the orthopedic service for a right ankle by malleolar fracture. Her surgery was canceled due to a diabetic ulcer along the medial aspect of the ankle. Wound care was consulted who recommended dressing changes and started her on Keflex q.i.d. times 10 days. Start date for the antibiotic was August 19 and end date is August 29. During their stay, their vitals were stable, afebrile at 97.4. She has been on aspirin for DVT ppx, she has also been working with occupational therapy for ADLs. She continues to remain nonweightbearing for at least 6 weeks. She has a follow-up appointment in the orthopedic office on August 29 for new x- rays. She should continue to have daily dressing changes and wound care on her medial ankle wound. Discharge plan to [facility]. Time Spent with Patient Time attestation: Total time spent providing and/or coordinating discharge services: Discharge coordination time: Less than 30 minutes Quality: Safe Use of Opioids Does Pt have an Active Cancer Diagnosis on the Problem List?: No Quality: Stroke Does the patient have a stroke diagnosis?: No Physical Exam Vital Signs: Vital Signs: Last Vital Signs Temp 97.4 F 08/26/21 11:13 Pulse 64 08/26/21 11:16 Resp 20 08/26/21 11:13 BP 135/60 08/26/21 11:16 Pulse Ox 97 08/26/21 11:16 BMI result Body Mass Index 30.1 Extrem: Other: right ankle cast in place, medial wound closed without purulance, localized erythema surrounding scab. DS: Data Data Completed and Pending Labs on day of discharge: Laboratory Results - last 24 hr 08/25/21 08/25/21 08/25/21 11:36 16:31 20:47 POC Glucose 139 H 140 H 129 H 08/26/21 08/26/21 07:20 11:02 POC Glucose 127 H 143 H Discharge Plan Discharge Patient Disposition: Xfer SNF Referrals: Gloria King PA-C [Physician Household Manager] - 1 Week (08/29/21 at 1:15pm) Discharge Medications: New acetaminophen 325 mg Tablet 650 mg PO Q6H PRN (Reason: Pain, Mild (Pain Scale 1-3)) 30 Days Qty: 240 0RF tramadol 50 mg Tablet 50 mg PO Q4H PRN (Reason: Pain, Moderate (Pain Scale 4-6) 7 Days Qty: 42 0RF docusate sodium 100 mg Capsule 100 mg PO BID 7 Days Qty: 14 0RF cephalexin 500 mg capsule 500 mg PO QID 3 Days Qty: 12 0RF Continued lisinopril 10 mg tablet 10 mg PO DAILY Qty: 90 3RF metformin 500 mg tablet 500 mg PO BID Qty: 180 3RF folic acid 1 mg tablet 1 mg PO DAILY Qty: 90 3RF tramadol 50 mg tablet 50 mg PO QID PRN (Reason: pain) 0RF simvastatin 20 mg tablet 20 mg PO BEDTIME 0RF levothyroxine 125 mcg tablet 125 mcg PO DAILY 0RF aspirin [Adult Aspirin Regimen] 81 mg tablet,delayed release (DR/EC) 81 mg PO DAILY 0RF cholecalciferol (vitamin D3) 50 mcg (2,000 unit) capsule 50 mcg PO DAILY 0RF Discontinued cephalexin 500 mg capsule 1 cap PO QID 0RF Diet: regular diet Activity on Discharge: Use cane or walker Stand Alone Forms: Patient Portal Discharge page Activity Restrictions/Additional Instructions: Keep splint clean, dry, and intact Elevate throughout the day No weight beareing Do not bathe or shower--keep splint dry Take Tramadol tabs 1 tab by mouth every 4-6 hours as needed keflex 500mg tabs qid x 10 days ( start date 08/19/21-end date 08/29/21) Call [facility] orthopedics with any questions or concerns. Follow up with orthopedics in 7-10 days post op Care Plan Goals: Restore function of joint Health Concerns: wound care on ankle Plan of Treatment: Keep splint clean, dry, and intact Elevate throughout the day No weight beareing Do not bathe or shower--keep splint dry Take Percocet 5/325mg tabs 1 tab by mouth every 4-6 hours as needed [address] [facility] orthopedics with any questions or concerns. Follow up with orthopedics in 7-10 days post op Assessment: as above
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
[2021-08-26 13:59] LABS: COVID-19 Test Negative (Negative); IDNOW Serial# 16C4AD1C
== END 2021-08-26 16:11 | disposition skilled nursing facility (03) ==
LOC: HO.S3 15:48
PROVIDERS: Physician Assistant Medical; Admitting Provider Orthopaedic Surgery; PCP Internal Medicine; Visit Provider Orthopaedic Surgery
DX: S82.841A Displaced bimalleolar fracture of right lower leg, initial encounter for closed fracture (principal); V89.2XXA Person injured in unspecified motor-vehicle accident, traffic, initial encounter; Y93.89 Activity, other specified; Y92.410 Unspecified street and highway as the place of occurrence of the external cause; Y99.8 Other external cause status; R23.4 Changes in skin texture; E11.65 Type 2 diabetes mellitus with hyperglycemia; E11.621 Type 2 diabetes mellitus with foot ulcer; L97.509 Non-pressure chronic ulcer of other part of unspecified foot with unspecified severity; L03.115 Cellulitis of right lower limb; I10 Essential (primary) hypertension; E03.9 Hypothyroidism, unspecified; E78.00 Pure hypercholesterolemia, unspecified; M85.80 Other specified disorders of bone density and structure, unspecified site; Z20.822 Contact with and (suspected) exposure to COVID-19; Z85.828 Personal history of other malignant neoplasm of skin; Z79.82 Long term (current) use of aspirin; Z79.899 Other long term (current) drug therapy; Z53.09 Procedure and treatment not carried out because of other contraindication
CPT/HCPCS: 36415; 73600; 73610; 82947; 85027; 87635; 93005; 97110; 97116; 97162; 97166; 97530; 97535; 99218; J0690; J1100; J2405; J3010

== ENCOUNTER 2021-09-26 07:30 | Outpatient (REF) | payer OTHER, MEDICARE, SELFPAY ==
--- NOTE | ~2021-09-26 | XR_ITS ---
EXAMINATION: XR ANKLE, RIGHT CLINICAL INFORMATION: Follow-up fracture COMPARISON: Previous x-rays most recent August 2021 TECHNIQUE: AP, lateral, and mortise views of the right ankle. FINDINGS: The medial and multiple lateral malleolar fractures appear unchanged. No ankle mortise widening is seen. There is soft tissue arterial calcification. There are calcaneal spurs. XR/XR ankle RT min 3V IMPRESSION: No change in the medial lateral malleolar fractures.
== END 2021-09-26 07:31 | disposition home or self-care (01) ==
LOC: HO.HOSX 07:30
PROVIDERS: Visit Provider Physician Assistant
DX: M25.571 Pain in right ankle and joints of right foot (principal)
CPT/HCPCS: 73610

== ENCOUNTER 2021-11-04 08:07 | Outpatient (REF) | payer MEDICARE, SELFPAY ==
--- NOTE | ~2021-11-04 | XR_ITS ---
EXAMINATION: XR ANKLE, RIGHT CLINICAL INFORMATION: Pain. COMPARISON: Radiograph of the right ankle 09/26/2021. TECHNIQUE: AP, lateral, and mortise views of the right ankle. FINDINGS: Unchanged medial and lateral malleolar fractures. Redemonstration of extensive multifocal degenerative changes. Extensive vascular calcifications. Again noted nonspecific diffuse soft tissue swelling. XR/XR ankle RT min 3V IMPRESSION: Appearance is similar when compared to 09/26/2021.
== END 2021-11-04 08:08 | disposition home or self-care (01) ==
LOC: HO.HOSX 08:07
PROVIDERS: Visit Provider Physician Assistant
DX: S82.891A Other fracture of right lower leg, initial encounter for closed fracture (principal)
CPT/HCPCS: 73610; 99212

== ENCOUNTER 2021-11-14 | Outpatient (REF) | payer MEDICARE, SELFPAY ==
[2021-11-14 11:16] LABS: MANUAL DIFF FLAG NO
[2021-11-14 11:35] LABS: Estimated Average Glucose 114 mg/dL; Hemoglobin A1c % 5.6 %
[2021-11-14 11:43] LABS: Alanine Aminotransferase < 6 U/L (0-31); Albumin Level 3.4 g/dL (3.5-5.0); Alkaline Phosphatase 73 U/L (39-117); Anion Gap 16 (12-20); Aspartate Amino Transferase 9 U/L (5-31); Bilirubin Total 0.5 mg/dL (0.0-1.0); Blood Urea Nitrogen 26 mg/dL (9-16); Calcium 9.7 mg/dL (8.4-10.2); Carbon Dioxide 21 mmol/L (22-29); Chloride 106 mmol/L (96-108); Estimated Glomerular Filt Rate 40; Glucose Random 155 mg/dL (60-115); Potassium 5.7 mmol/L (3.3-5.1); Sodium 137 mmol/L (135-145); Total Protein 5.7 g/dL (6.5-8.0)
[2021-11-14 11:52] LABS: Basophils Absolute Auto 0.1 X10*3/uL (0.0-0.2); Basophils Percent Auto 0.4 % (0-2); Eosinophils Absolute Auto 0.2 X10*3/uL (0.0-0.4); Eosinophils Percent Auto 1.5 % (0-4); Hematocrit 34.7 % (37.0-47.0); Hemoglobin 10.9 g/dl (12.0-16.0); Imm Gran Abs Auto 0.12 X10*3/uL (0.00-0.03); Lymphocytes Absolute Auto 0.7 X10*3/uL (1.2-4.9); Lymphocytes Percent Auto 5.7 % (20-40); Mean Corpuscular HGB Conc 31.4 g/dl (31.0-35.0); Mean Corpuscular Hemoglobin 28.4 pg (27.0-33.0); Mean Corpuscular Volume 90.4 fL (80.0-98.0); Mean Platelet Volume 12.5 fL (9.4-12.3); Monocytes Absolute Auto 1.2 X10*3/uL (0.1-1.2); Monocytes Percent Auto 9.7 % (2-11); Neutrophils Absolute Auto 9.9 x10*3/uL (2.0-8.3); Neutrophils Percent Auto 81.7 % (45-73); Platelet Count 253 X10*3/uL (160-400); Red Blood Count 3.84 X10*6/uL (4.20-5.50); Red Cell Distribution Width 13.5 % (11.0-16.0); White Blood Count 12.1 X10*3/uL (4.8-10.8)
[2021-11-14 16:59] LABS: Appearance Urine HAZY; Color Urine YELLOW; Glucose Urine UA NEG (NEG); Leukocyte Esterase Urine 1+ (NEG); Nitrite Urine NEG (NEG); PH 5.5 (5.0-8.0); Specific Gravity - Urine 1.025 (1.005-1.025); Urine Blood NEG (NEG); Urine Ketones NEG (NEG); Urine Protein TRACE MG/DL (NEG-TRACE)
[2021-11-14 17:10] LABS: Squamous Epithelial Cell Urine 2+ /LPF
[2021-11-14 17:11] LABS: Bacteria Urine 1+ /LPF
[2021-11-14 17:12] LABS: Calcium Oxalate Crystals Urine 1+ /LPF
[2021-11-14 17:13] LABS: RBC Urine 0-2 /HPF (0)
== END 2021-11-14 00:01 ==
LOC: HO.HMGCLDS
PROVIDERS: PCP Internal Medicine; Visit Provider Internal Medicine
DX: E11.65 Type 2 diabetes mellitus with hyperglycemia (principal)
CPT/HCPCS: 36415; 80053; 81001; 83036; 85025

== ENCOUNTER 2021-11-14 13:56 | Outpatient (REF) | payer MEDICARE, SELFPAY | END 2021-11-14 13:57 | disposition home or self-care (01) | LOC: HO.HMGCLNP 13:56 | PROVIDERS: PCP Internal Medicine; Visit Provider Internal Medicine | DX: Z13.89 Encounter for screening for other disorder (principal) ==

== ENCOUNTER 2021-11-25 14:39 | Emergency (ER) | payer MEDICARE, SELFPAY ==
--- NOTE | ~2021-11-25 | US_ITS ---
EXAMINATION: US SOFT TISSUE AXILLA CLINICAL INFORMATION: Right axillary mass COMPARISON: 08/02/2021 CT TECHNIQUE: Sonographic evaluation of the right axillary mass/lesion FINDINGS: Corresponding with the CT finding is a 7.7 x 6.0 x 7.1 cm complex structure with central fluid/necrosis, thickened and irregular peripheral rim, and echogenic septations/debris. There is peripheral vascularity. US/US soft tiss head and/or neck IMPRESSION: Complex right axillary structure with thickened, irregular periphery and central anechoic fluid which may represent a enlarged necrotic lymph node or necrotic soft tissue mass. This is nonspecific. Malignant or infectious etiologies not excluded. Given recent history of trauma, a chronic hematoma is a possibility.
--- NOTE | ~2021-11-25 | CT_ITS ---
EXAMINATION: CT CHEST WITH CONTRAST CLINICAL INFORMATION: Large right axillary mass. Evaluate for compression COMPARISON: Ultrasound of same day and CT chest of August 01, 2021 TECHNIQUE: Multidetector volumetric CT imaging of the chest was obtained after the administration of 65 mL of Omnipaque 350 intravenous contrast without immediate adverse reactions. Axial MIP volume rendering provided. Sagittal and coronal reformatted images were obtained. This CT examination was performed using dose optimization techniques as appropriate, variously including the following: *Automated exposure control *Adjustment of mA and/or kV according to patient size (this includes techniques or standardized protocols for targeted exams where dose is matched to indication/reason for exam; i.e. extremities or head) *Use of iterative reconstruction technique DLP: 285 mGy-cm FINDINGS: LUNGS: Central airways are patent. There is mild bronchiectasis seen in the lower lobes bilaterally. No confluent acute parenchymal disease is seen. There are sub-4 mm densities present. Numerous bilateral lung nodules are present. The following is a list of some of these nodules with majority not being mentioned.: There is a 6 mm noncalcified nodule seen within the right upper lobe on image 143 of 521 and series #5. There is a 6 mm noncalcified nodule seen within the right upper lobe on image 148 of 521. There is a 4 mm noncalcified nodule seen within the right upper lobe on image 156 of 521. Within the right middle lobe subpleurally laterally there is an irregularly marginated noncalcified mass measuring 1.1 x 0.8 cm in size on image 286 of 521. Within the right lower lobe there is a 9 x 6 mm noncalcified nodule on image 225.521. In the right lower lobe there is an 8 mm noncalcified nodule on image 248 of 521. Within the lingula there is a 7 mm noncalcified density surrounding a bronchus on image 299 of 521. Within the left lower lobe there is a noncalcified nodule measuring 6 mm in diameter on image 347 of 521. Within the left lower lobe there is a noncalcified 5 mm nodule on image 307 of 521. The lesions appear similar to prior study of August 02, 2021. MEDIASTINUM: Heart normal size. Coronary artery calcifications present. No pericardial effusion. Ascending thoracic aorta is prominent at 4 cm in diameter. There is small amount of calcified plaque seen within the thoracic aorta without obstructive disease at the origin of the arch vessels. No mediastinal or hilar lymphadenopathy is appreciated. The thyroid gland appears heterogeneous in density with a nodular appearance. Ultrasound be of help in further evaluation of the thyroid for nodules. PLEURA: There is no pleural effusion. No pleural mass or thickening. AXILLA: Within the right axilla deep to the pectus muscles there is a 7.3 x 6.5 x 8.7 cm mixed density mass with the appearance of necrotic lesion with some liquid components but also with some peripheral solid components with vascularity. This is most larger than on previous study. Where it measured 2.7 x 1.9 cm in size. Some calcifications is are noted within the mass. This is suspicious for malignancy. The mass is seen to cause mass impression upon the right axillary vein with question thrombosis of a portion adjacent to the mass. Duplex Doppler ultrasound evaluation of the right upper extremity to rule out thrombosis would be of help in further evaluation of possible DVT. The subclavian and axillary arteries appear patent. UPPER ABDOMEN: No adrenal gland mass is appreciated. OSSEOUS STRUCTURES: No suspicious destructive bony lesion is identified. There is mild scoliosis of the thoracic spine convex left. Multilevel degenerative disc disease with spurring is noted. CT/CT chest w con IMPRESSION: Enlarging right axillary mass measuring up to 8.7 cm in size with extensive with the appearance of malignancy with necrotic central portion. There is mass impression upon the axillary vein with the appearance of thrombosis. Ultrasound of the upper extremity would be of help in further evaluation of possible deep venous thrombosis. Numerous lung nodules without significant change from study of August 01, 2021. Prominent ascending thoracic aorta at 4 cm in diameter. Heterogeneous thyroid gland with question nodules with ultrasound would be of help in further evaluation. Fleischner guidelines were followed.
[2021-11-25 15:09] VITALS: BP 93/44; PULSE 83; RESP 16; TEMP 36.5; O2SAT 96; BMI 28.3
[2021-11-25 16:00] VITALS: BP 107/60; PULSE 76; RESP 16; O2SAT 95
--- NOTE | 2021-11-25 16:47 | ED_ITS ---
HPI - Skin/Abscess/Foreign Bdy General Chief complaint: Skin/Abscess/Foreign Body Stated complaint: infection under armpit Time Seen by Provider: 11/25/21 16:37 Source: patient and family Mode of arrival: ambulatory Limitations: no limitations History of Present Illness HPI narrative: 86 yo female with hx of HTN, HLD, DM, prior skin cancer comes in with c/o 6 weeks of R arm pain but then yesterday noted mass in R armpit that is painful. Saw that sent her to ED. Denies trauma, skin infections, cat bite, prior swollen lymph node complaint: lesion Onset (ago): day(s) (1) Tetanus up to date: unsure Location: RUE (axilla) Severity: moderate Quality: aching and dull Pain Consistency: constant Relieving factors: immobilization Exacerbating factors: palpation and movement Context: none Associated symptoms: denies other symptoms Treatments prior to arrival: none Related Data Home Medications Medication Instructions Recorded Confirmed cholecalciferol (vitamin D3) 50 50 mcg PO DAILY 02/12/20 11/08/21 mcg (2,000 unit) capsule simvastatin 20 mg tablet 20 mg PO BEDTIME 08/02/21 11/08/21 Previous Rx's Medication Instructions Recorded metformin 500 mg tablet 500 mg PO BID #180 tabs 10/27/20 folic acid 1 mg tablet 1 mg PO DAILY #90 tabs 05/09/21 tramadol 50 mg tablet 50 mg PO Q4H PRN Pain, Moderate 10/17/21 (Pain Scale 4-6 7 days #42 tabs ascorbic acid (vitamin C) 500 mg 500 mg PO .QD 90 days #90 caps 10/21/21 capsule lisinopril 10 mg tablet 10 mg PO DAILY 90 days #90 tabs 10/27/21 nystatin 100,000 unit/gram topical 1 appl topical TID #30 grams 10/27/21 ointment nystatin 100,000 unit/gram topical 1 appl topical TID #30 grams 10/27/21 powder levothyroxine 125 mcg tablet 125 mcg PO DAILY #90 tabs 10/30/21 apixaban 5 mg tablet (Eliquis) 5 mg PO BID 7 days #14 tabs 11/25/21 Allergies Allergy/AdvReac Type Severity Reaction Status Date / Time No Known Allergies Allergy Mild NONE Verified 11/25/21 13:36 Review of Systems Review of Systems: Constitutional : No Fever, No Chills ENT/Mouth : No sore throat, No Rhinorrhea Eyes: No Eye Pain, No Swelling, No Redness Cardiovascular : No Chest Pain, No SOB Respiratory : No Cough, No Sputum Gastrointestinal : No Nausea, No Vomiting, No Diarrhea, No abdominal Pain Genitourinary : No Dysuria, No Hematuria Musculoskeletal : No joint pain, No Myalgias, No Joint Swelling Skin : No Skin Lesions, no skin rash Neuro : No Weakness, No Numbness, No Headache Psych : No Anxiety, No Depression Heme/Lymph: No Bruising, No Bleeding,pos Lymphadenopathy Endocrine : No Polyuria, No Polydipsia All other systems reviewed and are negative [facility] Past Medical History Medical History Chronic low back pain Facial basal cell cancer Finger dislocation Hiatal hernia Hypercholesterolemia Hypertension Hypothyroid Obesity (BMI 30-39.9) Osteoarthritis 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 Type 2 diabetes mellitus with hyperglycemia Surgical History History of appendectomy History of cholecystectomy History of skin cancer History of tonsillectomy History of total abdominal hysterectomy and bilateral salpingo-oophorectomy Family History Family History Father Hypertension CVD (cardiovascular disease) Cancer Mother Hypertension Social History Social History Housing: House Alcohol intake: former Patient Tobacco Use Status: Never used Tobacco e-Cigarette/Vaping Use: Never Used Second Hand Smoke Exposure: No Advance Directives: Yes Advance Directives on File: Yes Advance Directives Date on File: 08/03/21 service: No Current occupational status: retired Current occupational exposures/hazards: No Cognitive needs: Yes (walker/wheelchair) Hearing needs: Yes Vision needs: Yes Physical Exam Vital Signs: Vital Signs: Last Vital Signs Temp 97.7 F 11/25/21 15:09 Pulse 76 11/25/21 18:00 Resp 16 11/25/21 18:00 BP 120/44 L 11/25/21 18:00 Pulse Ox 96 11/25/21 18:00 O2 Del Method 11/25/21 18:00 BMI result Body Mass Index 28.3 Appearance: Alert. Oriented X3. No acute distress. Eyes: Pupils equal, round and reactive to light. ENT: Pharynx normal. Neck: Normal inspection. Neck supple. CVS: Normal heart rate and rhythm. Pulses normal. Respiratory: No respiratory distress. Breath sounds normal. Abdomen: Soft and nontender. Skin: Skin warm and dry. Normal skin color. Normal skin turgor. Extremities: No lower extremity edema. R axilla large tense non fluctuant ball felt in anterior axiall no erythema no warmth - distal NV intact, no swelling to RUE, no JVD or mass seen over chest Neuro: Oriented X 3. No motor deficit. No sensory deficit. Course Course Course Narrative: possible DVT - likely malignancy will admit for further workup will order DVT study for AM does not want to stay in hospital discussed risks of DOAC and likely clot patient wants to start DOAC> she does not want to be admitted, she wants to f ollow up with PCP. MDM - Skin/Abscess/Foreign Bdy MDM Narrative Medical decision making narrative: 86 yo female with hx of HTN, HLD, DM, prior skin cancer here with c/o R axillary large ? lymph node that does not appear infected and not associated with peripheral infection patient did have arm pain x 6 weeks. Does not own a cat. At this time will obtain labs, cultures, CT scan to assess for possible mass/size of lymph node. Dispo per results and findings. Lab Data Result diagrams: 11/25/21 18:07 11/25/21 18:07 Labs: Lab Results 11/25/21 11/25/21 11/25/21 Range/Units 18:07 18:07 20:52 WBC 10.2 (4.8-10.8) X10*3/uL RBC 3.98 L (4.20-5.50) X10*6/uL Hgb 11.2 L (12.0-16.0) g/dl Hct 35.2 L (37.0-47.0) % MCV 88.4 (80.0-98.0) fL MCH 28.1 (27.0-33.0) pg MCHC 31.8 (31.0-35.0) g/dl RDW 13.8 (11.0-16.0) % Plt Count 205 (160-400) X10*3/uL MPV 12.2 (9.4-12.3) fL Immature Gran % (Auto) 0.6 H (0.0-0.4) % Neut % (Auto) 76.1 H (45-73) % Lymph % (Auto) 9.5 L (20-40) % Evangeline % (Auto) 10.8 (2-11) % Eos % (Auto) 2.5 (0-4) % Baso % (Auto) 0.5 (0-2) % Lymph # (Auto) 1.0 L (1.2-4.9) X10*3/uL Evangeline # (Auto) 1.1 (0.1-1.2) X10*3/uL Eos # (Auto) 0.3 (0.0-0.4) X10*3/uL Baso # (Auto) 0.1 (0.0-0.2) X10*3/uL Abs Immat Gran (auto) 0.06 H (0.00-0.03) X10*3/uL Absolute Neuts (auto) 7.8 (2.0-8.3) x10*3/uL Absolute Nucleated RBC 0.000 (0.0-0.012) X10*3/uL Nucleated RBC % (auto) 0.0 (0.0-0.2) /100WBC Sodium 136 (135-145) mmol/L Potassium 4.9 (3.3-5.1) mmol/L Chloride 106 (96-108) mmol/L Carbon Dioxide 18 L (22-29) mmol/L Anion Gap 17 (12-20) BUN 26 H (9-16) mg/dL Creatinine 1.39 (0.5-1.4) mg/dL Estim Creat Clear Calc 27.7 Estimated GFR 36 Random Glucose 96 (60-115) mg/dL Lactic Acid 0.8 (0.5-2.0) mmol/L Calcium 9.7 (8.4-10.2) mg/dL Discharge Plan Discharge Clinical Impression: Lymphadenopathy, Deep vein thrombosis (DVT) of axillary vein Patient Disposition: Home, Self-Care Instructions: Lymphadenopathy (ED), Deep Vein Thrombosis (ED), Blood Thinners (ED) Additional Instructions: return to ED for any worsening symptoms or concerns this needs to be biopsied this is likely a cancer - you were offered admission but you declined, there is likely a blood clot you were started on a blood thinner until you see your primary care doctor please return if you notice any black or bloody stools, or if you hit your head CT/CT chest w con IMPRESSION: Enlarging right axillary mass measuring up to 8.7 cm in size with extensive with the appearance of malignancy with necrotic central portion. There is mass impression upon the axillary vein with the appearance of thrombosis. Ultrasound of the upper extremity would be of help in further evaluation of possible deep venous thrombosis. ? Numerous lung nodules without significant change from study of August 01, 2021. ? Prominent ascending thoracic aorta at 4 cm in diameter. ? Heterogeneous thyroid gland with question nodules with ultrasound would be of help in further evaluation. Prescriptions: New Eliquis 5 mg tablet 5 mg PO BID 7 Days Qty: 14 0RF No Action metformin 500 mg tablet 500 mg PO BID Qty: 180 3RF folic acid 1 mg tablet 1 mg PO DAILY Qty: 90 3RF tramadol 50 mg tablet 50 mg PO Q4H PRN (Reason: Pain, Moderate (Pain Scale 4-6) 7 Days Qty: 42 0RF ascorbic acid (vitamin C) 500 mg capsule 500 mg PO .QD 90 Days Qty: 90 1RF levothyroxine 125 mcg tablet 125 mcg PO DAILY Qty: 90 2RF simvastatin 20 mg tablet 20 mg PO BEDTIME cholecalciferol (vitamin D3) 50 mcg (2,000 unit) capsule 50 mcg PO DAILY nystatin 100,000 unit/gram ointment 1 appl topical TID Qty: 30 0RF nystatin 100,000 unit/gram powder 1 appl topical TID Qty: 30 1RF lisinopril 10 mg tablet 10 mg PO DAILY 90 Days Qty: 90 3RF Referrals: Po,Klever Purdy MD [Primary Care Provider] - 11/28/21
[2021-11-25] MEDS: Acetaminophen 325 MG TABLET 650 MG PO (17:35)
--- NOTE | 2021-11-25 17:36 | PC.NURSE ---
pt a&ox3, vss, medicated per provider order for 6/10 right under arm pain.
[2021-11-25 18:00] VITALS: BP 120/44; PULSE 76; RESP 16; O2SAT 96
[2021-11-25 18:24] LABS: MANUAL DIFF FLAG NO
[2021-11-25 18:44] LABS: Anion Gap 17 (12-20); Blood Urea Nitrogen 26 mg/dL (9-16); Calcium 9.7 mg/dL (8.4-10.2); Carbon Dioxide 18 mmol/L (22-29); Chloride 106 mmol/L (96-108); Creatinine Clr Calc Pharmacy 27.7; Estimated Glomerular Filt Rate 36; Glucose Random 96 mg/dL (60-115); Potassium 4.9 mmol/L (3.3-5.1); Sodium 136 mmol/L (135-145)
[2021-11-25 19:00] LABS: Basophils Absolute Auto 0.1 X10*3/uL (0.0-0.2); Basophils Percent Auto 0.5 % (0-2); Eosinophils Absolute Auto 0.3 X10*3/uL (0.0-0.4); Eosinophils Percent Auto 2.5 % (0-4); Hematocrit 35.2 % (37.0-47.0); Hemoglobin 11.2 g/dl (12.0-16.0); Imm Gran Abs Auto 0.06 X10*3/uL (0.00-0.03); Imm Gran Pct Auto 0.6 % (0.0-0.4); Lymphocytes Percent Auto 9.5 % (20-40); Mean Corpuscular HGB Conc 31.8 g/dl (31.0-35.0); Mean Corpuscular Hemoglobin 28.1 pg (27.0-33.0); Mean Corpuscular Volume 88.4 fL (80.0-98.0); Mean Platelet Volume 12.2 fL (9.4-12.3); Monocytes Absolute Auto 1.1 X10*3/uL (0.1-1.2); Monocytes Percent Auto 10.8 % (2-11); Neutrophils Absolute Auto 7.8 x10*3/uL (2.0-8.3); Neutrophils Percent Auto 76.1 % (45-73); Platelet Count 205 X10*3/uL (160-400); Red Blood Count 3.98 X10*6/uL (4.20-5.50); Red Cell Distribution Width 13.8 % (11.0-16.0); White Blood Count 10.2 X10*3/uL (4.8-10.8)
[2021-11-25] MEDS: iohexoL 350 MG/ML 100 ML INFUS..BTL IV (19:22)
[2021-11-25] MEDS: 0.9 % Sodium Chloride 500 ML IV (19:35)
[2021-11-25 21:17] LABS: Lactic Acid 0.8 mmol/L (0.5-2.0)
[2021-11-25 23:06] VITALS: BP 115/61; PULSE 76; RESP 16; TEMP 36.7; O2SAT 95
[2021-11-25] MEDS: Apixaban 5 MG TABLET PO (23:12)
--- NOTE | 2021-11-25 23:23 | PC.NURSE ---
medicated per provider order.
== END 2021-11-25 23:24 | disposition home or self-care (01) ==
PROVIDERS: Emergency Provider Emergency Medicine; PCP Internal Medicine
DX: I82.A11 Acute embolism and thrombosis of right axillary vein (principal); R59.0 Localized enlarged lymph nodes; M54.2 Cervicalgia; Z79.899 Other long term (current) drug therapy
CPT/HCPCS: 36415; 71260; 76536; 80048; 83605; 85025; 87040; 96360; 99284; Q9967

== ENCOUNTER 2021-12-02 08:11 | Outpatient (REF) | payer MEDICARE, SELFPAY ==
--- NOTE | ~2021-12-02 | XR_ITS ---
EXAMINATION: XR ANKLE, RIGHT CLINICAL INFORMATION: Pain ankle. COMPARISON: Multiple radiographs most recent October 2021 and dating back to July 2021. TECHNIQUE: AP, lateral, and mortise views of the right ankle. FINDINGS: The oblique fracture mildly displaced through the medial malleolus remains ununited without osseous bridging. There is some increased density along the edges of the fracture line, slightly more evident than previous. The previously noted fibular fracture is barely conspicuous indicative of significant osseous bridging and fracture healing, unchanged compared to prior. There are degenerative changes in the midfoot with marginal osteophytes noted involving the naviculocuneiform joints and the tarsometatarsal joints. Plantar calcaneal spur. Extensive vascular calcification. XR/XR ankle RT min 3V IMPRESSION: Ununited medial malleolar fracture. Healed/near-completely healed distal fibular fracture. Degenerative changes in the midfoot. Vascular calcification.
== END 2021-12-02 08:12 | disposition home or self-care (01) ==
LOC: HO.HOSX 08:11
PROVIDERS: Visit Provider Physician Assistant
DX: S82.891A Other fracture of right lower leg, initial encounter for closed fracture (principal)
CPT/HCPCS: 73610; 99212

== ENCOUNTER → 2021-12-09 09:18 | Outpatient (BNVA) | payer MEDICARE, SELFPAY | PROVIDERS: PCP Internal Medicine; Referring Provider Internal Medicine; Visit Provider Surgery | DX: R22.31 Localized swelling, mass and lump, right upper limb (principal); I82.A11 Acute embolism and thrombosis of right axillary vein | CPT/HCPCS: 99202 ==

== ENCOUNTER 2021-12-14 09:58 | Outpatient (REF) | payer MEDICARE, SELFPAY ==
--- NOTE | ~2021-12-14 | US_ITS ---
EXAMINATION: US THYROID CLINICAL INFORMATION: Nontoxic single thyroid nodule. COMPARISON: None TECHNIQUE: Linear transducer grayscale and color Doppler examination with attention to the region of the thyroid. Limited due to patient being in a wheelchair and low position of thyroid. FINDINGS: SIZE: Measurements of the thyroid lobes and nodules are given in sagittal, anteroposterior and transverse dimensions respectively. Right Thyroid Lobe: 3.21 x 1.18 x 0.97 cm, volume 1.94 mL. Parenchyma: The gland echotexture is heterogeneous. Thyroid vascularity is normal. Left Thyroid Lobe: 2.29 x 1.52 x 1.13 cm, volume 2.07 mL. Parenchyma: The gland echotexture is heterogeneous. Thyroid vascularity is normal. Isthmus: 0.41 cm in maximum AP dimension. Estimated total number of nodules greater than or equal to 1 cm: 0. 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 Location: Right mid. Size: 0.8 x 0.7 x 0.74 cm, volume 0.21 mL. Nodule characteristics: Composition: Solid (2). Echogenicity: Hypoechoic (2). Shape: Not taller than wide (0). Margins: Smooth (0). Echogenic Foci: Macrocalcifications (1). ACR TI-RADS total points: 5 ACR TI-RADS category: 4 NODES: No lymphadenopathy is seen in the tissue surrounding the thyroid gland. US/US thyroid IMPRESSION: Small heterogeneous thyroid gland. Solitary right thyroid nodule. According to TI RADS criteria, ultrasound follow-up annually for 5 years recommended. ACR TI-RADS RECOMMENDATION REFERENCE: Ultrasound-guided fine-needle aspiration, followup ultrasound, no further follow up. * TR1 (0 point) and TR 2 (2 points): No FNA or follow up * TR3 (3 points): FNA if more than or equal to 2.5 cm in maximum dimension, followup ultrasound in 1, 3 and 5 years if 1.5 to 2.4 cm in maximum dimension. * TR4 (4-6 points): FNA if more than or equal to 1.5 cm in maximum dimension, followup ultrasound in 1, 2, 3 and 5 years if 1 to 1.4 cm in maximum dimension. * TR5 (more than or equal to 7 points): FNA if more than or equal to 1 cm in maximum dimension, followup ultrasound every year for 5 years if 0.5 to 0.9 cm in maximum dimension. * TR3, TR4 or TR5 nodules that are below the size threshold for follow up receive no follow up.
== END 2021-12-14 09:59 | disposition home or self-care (01) ==
LOC: HO.HMGCX 09:58
PROVIDERS: Visit Provider Internal Medicine
DX: E04.1 Nontoxic single thyroid nodule (principal)
CPT/HCPCS: 76536

== ENCOUNTER 2021-12-16 09:36 | Outpatient (REF) | payer MEDICARE, SELFPAY ==
--- NOTE | ~2021-12-16 | US_ITS ---
EXAMINATION: ULTRASOUND-GUIDED FINE NEEDLE ASPIRATION ULTRASOUND-GUIDED LYMPH NODE BIOPSY CLINICAL INFORMATION: Right axillary mass COMPARISON: Previous soft tissue ultrasound November 2021. TECHNIQUE: Procedure and risks and benefits including bleeding and infection were discussed with the patient and informed consent was obtained. The right upper anterior chest was prepped and draped in the usual sterile fashion. The skin and soft tissues were anesthetized with 1% lidocaine plain. Using ultrasound guidance and a 17-gauge coaxial needle, access to the right axillary mass was obtained. 120 mL of serosanguineous fluid was removed. Subsequently, four 18-gauge core biopsies were obtained. Specimens were sent for cytology and pathology studies. FINDINGS: There is a complex cystic right axillary mass. This measures 9 x 9.5 x 9.5 cm in dimension. US/US biopsy lymph node IMPRESSION: Ultrasound-guided right axillary mass biopsy.
--- NOTE | ~2021-12-16 | US_ITS ---
EXAMINATION: ULTRASOUND-GUIDED FINE NEEDLE ASPIRATION ULTRASOUND-GUIDED LYMPH NODE BIOPSY CLINICAL INFORMATION: Right axillary mass COMPARISON: Previous soft tissue ultrasound November 2021. TECHNIQUE: Procedure and risks and benefits including bleeding and infection were discussed with the patient and informed consent was obtained. The right upper anterior chest was prepped and draped in the usual sterile fashion. The skin and soft tissues were anesthetized with 1% lidocaine plain. Using ultrasound guidance and a 17-gauge coaxial needle, access to the right axillary mass was obtained. 120 mL of serosanguineous fluid was removed. Subsequently, four 18-gauge core biopsies were obtained. Specimens were sent for cytology and pathology studies. FINDINGS: There is a complex cystic right axillary mass. This measures 9 x 9.5 x 9.5 cm in dimension. US/US guided fine needle asp IMPRESSION: Ultrasound-guided right axillary mass biopsy.
[2021-12-16] MEDS: Lidocaine HCl 1 % MPF 5 ML VIAL 4 ML SUBCUT (11:15)
== END 2021-12-16 09:37 | disposition home or self-care (01) ==
LOC: HO.US 09:36
PROVIDERS: Visit Provider Surgery
DX: R22.31 Localized swelling, mass and lump, right upper limb (principal); C96.9 Malignant neoplasm of lymphoid, hematopoietic and related tissue, unspecified; I82.A11 Acute embolism and thrombosis of right axillary vein
CPT/HCPCS: 10005; 38505; 76942; 88173; 88300; 88305; 88333; 88341; 88342

== ENCOUNTER → 2021-12-23 09:31 | Outpatient (BNVA) | payer MEDICARE, SELFPAY | PROVIDERS: PCP Internal Medicine; Visit Provider Surgery | DX: C80.1 Malignant (primary) neoplasm, unspecified (principal); C77.3 Secondary and unspecified malignant neoplasm of axilla and upper limb lymph nodes; Z85.828 Personal history of other malignant neoplasm of skin | CPT/HCPCS: 99212 ==

== ENCOUNTER 2022-02-01 | Outpatient (REF) | payer MEDICARE, SELFPAY ==
--- NOTE | ~2022-02-01 | XR_ITS ---
EXAMINATION: XR ANKLE, RIGHT CLINICAL INFORMATION: Pain in right ankle and joints of right foot. COMPARISON: 12/02/2021 TECHNIQUE: AP, lateral, and mortise views of the right ankle. 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 There is also fracture in the medial malleolus. This has not changed in position from previous exam. Vascular calcifications are also noted. Degenerative change at the tibiotalar articulation is once again seen. No acute finding. XR/XR ankle RT min 3V IMPRESSION: Exam appears similar to previous. Ununited medial malleolar fracture. No change in position. Degenerative changes and vascular calcifications are noted.
== END 2022-02-01 00:01 | disposition home or self-care (01) ==
LOC: HO.HOSX
PROVIDERS: Visit Provider Physician Assistant
DX: M25.571 Pain in right ankle and joints of right foot (principal)
CPT/HCPCS: 73610; 99212

== ENCOUNTER 2022-02-03 15:09 | Outpatient (REF) | payer MEDICARE, SELFPAY ==
--- NOTE | ~2022-02-03 | US_ITS ---
EXAMINATION: US VENOUS WITH DOPPLER UPPER EXTREMITY, RIGHT CLINICAL INFORMATION: Pain and swelling COMPARISON: Previous soft tissue ultrasound November 2021 TECHNIQUE: Ultrasound of the upper extremity is performed using compression sonography and color and pulse Doppler flow with assessment of augmentation of flow. There is also imaging and Doppler assessment of the jugular and subclavian veins. Spectral analysis with color-flow imaging is performed. FINDINGS: The right internal jugular, subclavian, brachial, basilic and cephalic veins are patent. Radial and ulnar veins are forearm are patent. The right axillary vein is not visualized. There is a large complex cystic mass in the right axilla measuring approximately 14 cm. US/US venous duplex UE RT IMPRESSION: The right axillary vein is not visualized. No DVT is seen. Large complex cystic right axillary mass measuring 14 cm. This measured 6 x 7 x 8 cm November 2021 and may be increased in size.
== END 2022-02-03 15:10 | disposition home or self-care (01) ==
LOC: HO.US 15:09
PROVIDERS: PCP Internal Medicine; Visit Provider Internal Medicine Medical Oncology
DX: I82.A11 Acute embolism and thrombosis of right axillary vein (principal)
CPT/HCPCS: 93971

== ENCOUNTER 2022-02-07 08:12 | Outpatient (REF) | payer MEDICARE, SELFPAY ==
--- NOTE | ~2022-02-07 | PE_ITS ---
EXAMINATION: Fluorine-18 FDG PET/CT Scan CLINICAL INDICATION: Initial treatment management. Squamous cell carcinoma of right axilla. PROCEDURE: 63 minutes following the intravenous administration of 14.3 mCi of fluorine 18 FDG, images from the base of the skull to the mid thighs were obtained using a combined PET/CT scanner with CT scan based attenuation correction. No oral contrast was administered. No intravenous contrast was administered. Transverse, coronal, sagittal, and volume reconstruction projections were obtained. The patient's blood glucose as determined by a finger stick, was 82 mg/dl immediately prior to injection. Total CT exam dose-length product 613.12 mGy-cm * These CT images were obtained using dose optimization techniques as appropriate, variously including the following: Automated exposure control * Adjustment of mA and/or kV according to patient size (this includes techniques or standardized protocols for targeted exams where dose is matched to indication/reason for exam; i.e. extremities or head) * Use of iterative reconstruction technique COMPARISON: No previous PET/CT scan is available for comparison. CT scan of the chest dated 11/25/[address] scan of the chest, abdomen, and pelvis, dated 08/01/2021, is available for comparison. FINDINGS: (Slice numbers described in this report are numbered superiorly to inferiorly with slice #1 in the head) NECK AND VISUALIZED HEAD: No foci of abnormal FDG activity are noted. The distribution of FDG activity is physiological. There is no cervical lymphadenopathy. THORAX: The large right axillary mass visualized on the 11/25/2021 CT scan is again visualized. This is markedly FDG avid in its periphery, showing SUVmax 10.8 in a peripheral focus in the superior medial aspect of this mass. The central portion is markedly FDG photopenic. On the CT images this measures 11.6 x 9.1 cm in largest transverse dimensions and approximately 13.5 cm cephalocaudad. There is slightly larger than on the 11/25/2021 CT scan when this measured 7.3 x 6.5 cm in largest transverse dimensions and 8.7 cm cephalocaudad. This mass contains some scattered small dense calcifications. No other foci of abnormal FDG activity are present in the chest. Multiple pulmonary nodules are present bilaterally and most of these are too small to be characterized on the FDG PET images. All these were better delineated on the diagnostic CT scan dated 11/25/2021 and new nodules do not appear to be present. These include a nodule laterally in the right middle lobe Some minimal right-sided pleural thickening is present but there is no pleural or pericardial fluid or pneumothorax. There is no mediastinal, supraclavicular, or left axillary lymphadenopathy. No additional right axillary lymphadenopathy is present outside of the previous described large mass. ABDOMEN AND PELVIS: No foci of abnormal FDG activity are present in the abdomen or pelvis. The liver and spleen are unremarkable. The gallbladder has been resected and there are metallic surgical clips in the gallbladder bed. The kidneys, adrenal glands, and pancreas are unremarkable. There is diffuse FDG activity of varying intensities present throughout the gastrointestinal tract, most intensely in the transverse and right colon. There are no corresponding CT abnormalities. There is diverticulosis without evidence of diverticulitis. The hollow viscera are otherwise unremarkable. The kidneys are unremarkable. A small hypodense cyst visualized on the diagnostic CT scan performed with intravenous contrast dated 08/02/2021 is not apparent on these nondiagnostic CT images. There is a dense 0.3 cm calcification in the lower pole of the left kidney which probably represents a nonobstructing calculus, but may be a vascular calcification. The kidneys otherwise appear unremarkable. The adrenal glands and pancreas are unremarkable. There is no retroperitoneal, mesenteric, pelvic or inguinal lymphadenopathy. The patient is status post hysterectomy, but the pelvic organs are otherwise unremarkable. MUSCULOSKELETAL: No foci of abnormal FDG activity are present in the osseous structures. A mild thoracolumbar scoliosis with lumbar convexity to the right is noted. There are diffuse degenerative changes in the spine but no suspicious sclerotic or lytic lesions are visualized. VASCULAR: Diffuse vascular calcifications including coronary are noted. PET/PET CT fusion skull to thigh IMPRESSION: 1. The previously visualized large right axillary mass is markedly FDG avid in its periphery and is consistent with a malignant lesion. Marked central photopenia is likely due to extensive central necrosis. 2. Multiple stable appearing pulmonary nodules are present, most too small to be characterized on the FDG PET images, but the larger of these do not show abnormal FDG activity, suggesting a benign etiology. Continued monitoring of these with diagnostic CT imaging is recommended. 3. No additional abnormalities suspicious for metastatic or other malignant lesions are noted.
== END 2022-02-07 08:13 | disposition home or self-care (01) ==
LOC: HO.PET 08:12
PROVIDERS: Visit Provider Internal Medicine Medical Oncology
DX: Z13.89 Encounter for screening for other disorder (principal)

== ENCOUNTER 2022-02-13 10:00 | Outpatient (RCR) | payer MEDICARE, SELFPAY ==
[2022-01-03 08:34] VITALS: BP 127/60; PULSE 89; RESP 12; TEMP 36.7; O2SAT 96; BMI 28.3
[2022-01-03] MEDS: oxyCODONE HCl Immed Release 5 MG TABLET PO (09:22)
[2022-01-03 09:30] LABS: MANUAL DIFF FLAG NO
[2022-01-03 09:36] LABS: Basophils Absolute Auto 0.1 X10*3/uL (0.0-0.2); Basophils Percent Auto 0.4 % (0-2); Eosinophils Absolute Auto 0.2 X10*3/uL (0.0-0.4); Eosinophils Percent Auto 1.5 % (0-4); Hematocrit 37.6 % (37.0-47.0); Hemoglobin 11.6 g/dl (12.0-16.0); Imm Gran Abs Auto 0.03 X10*3/uL (0.00-0.03); Imm Gran Pct Auto 0.3 % (0.0-0.4); Lymphocytes Absolute Auto 0.9 X10*3/uL (1.2-4.9); Mean Corpuscular HGB Conc 30.9 g/dl (31.0-35.0); Mean Corpuscular Hemoglobin 27.4 pg (27.0-33.0); Mean Corpuscular Volume 88.7 fL (80.0-98.0); Mean Platelet Volume 11.2 fL (9.4-12.3); Monocytes Absolute Auto 1.3 X10*3/uL (0.1-1.2); Monocytes Percent Auto 11.1 % (2-11); Neutrophils Absolute Auto 8.9 x10*3/uL (2.0-8.3); Neutrophils Percent Auto 78.7 % (45-73); Platelet Count 327 X10*3/uL (160-400); Red Blood Count 4.24 X10*6/uL (4.20-5.50); Red Cell Distribution Width 13.9 % (11.0-16.0); White Blood Count 11.3 X10*3/uL (4.8-10.8)
--- NOTE | 2022-01-03 09:36 | P.CNHO_ITS ---
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 Patient: new to practice Consult date: 01/03/22 Requesting Physician: Sheldon. 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 Narrative: Nathaly Abreu is a 86 year old lady, who has had multiple skin cancers removed from her face and extremities, over the years. In August she fell and broke her ankle. She had to have surgery. Discharge summary: The patient admitted to the hospital under the orthopedic service for a right ankle by malleolar fracture. Her surgery was canceled due to a diabetic ulcer along the medial aspect of the ankle. Wound care was consulted who recommended dressing changes and started her on Keflex q.i.d. times 10 days. Start date for the antibiotic was August 19 and end date is August 29. During their stay, their vitals were stable, afebrile at 97.4. She has been on aspirin for DVT ppx, she has also been working with occupational therapy for ADLs. She continues to remain nonweightbearing for at least 6 weeks. Ultrasound of the head and neck from 12/26 revealed: Complex right axillary structure with thickened, irregular periphery and central anechoic fluid which may represent a enlarged necrotic lymph node or necrotic soft tissue mass. This is nonspecific. Malignant or infectious etiologies not excluded. Given recent history of trauma, a chronic hematoma is a possibility. CT scan of the chest from 11/25 revealed: IMPRESSION: Enlarging right axillary mass measuring up to 8.7 cm in size with extensive with the appearance of malignancy with necrotic central portion. There is mass impression upon the axillary vein with the appearance of thrombosis. Ultrasound of the upper extremity would be of help in further evaluation of possible deep venous thrombosis. Numerous lung nodules without significant change from study of August 01, 2021. Prominent ascending thoracic aorta at 4 cm in diameter. Heterogeneous thyroid gland with question nodules with ultrasound would be of help in further evaluation. On 12/09 she was seen by Dr. Chung. His note: 86-year-old lady presenting with a large right axillary mass which by CT scan of the chest measures about 8.7 cm with the appearance of a malignancy with necrotic central portion. Ultrasound revealed a thickened irregular periphery and central and a colic fluid whic may represent enlarged necrotic lymph node or necrotic soft tissue mass. Malignant or infectious etiology is not excluded and chronic hematoma is a possibility. 12/16, Ultrasound-guided FNA revealed: Squamous cell carcinoma, moderate to poorly differentiated. FAMILY HISTORY: Dad of lung cancer. He was a smoker. SOCIAL HISTORY: She worked in a factory. She was . She is . She had 6 children. One of them . She denies smoking. She used to drink socially. ROS: She has been rather fatigued. She does walk with the help of her walker at home. She denies any fever nor chills. Appetite is fair. Sometimes she eats very well. She has had weight loss. She denies any headache no dizziness. No chest pain or trouble breathing. She denies any abdominal pain nausea vomiting heartburn indigestion. Bowels are working without any gross blood in it. She has had a colonoscopy in the distant past. She denies any dysuria or hematuria. She has had pain in her right shoulder. She has a mass in the right axilla. She has had quite a bit of pain there. She grades the pain as up to a level of 8. She just started taking oxycodone. With that the pain went down to a level of 5. She has alternated with tramadol. She did take a on oxycodone at 6 this morning. Her legs are weak. She is depressed on account of for it has been happening to her lately. She has had multiple skin lesions removed from her face and hands in the past. Review of Systems - Constitutional Reports system reviewed and no additional complaints, except as documented, Reports fatigue, Reports lack of energy, Reports malaise, Reports poor appetite, Reports weight loss, Denies fever(s) - Eyes Reports system reviewed and no additional complaints, except as documented - ENT Reports system reviewed and no additional complaints, except as documented - Cardiovascular Reports system reviewed and no additional complaints, except as documented - Respiratory Reports no additional respiratory complaints - Gastrointestinal Reports system reviewed and no additional complaints, except as documented - Genitourinary Reports no additional female genitourinary complaints - Musculoskeletal Reports system reviewed and no additional complaints, except as documented - Integumentary/Breasts Skin/Breast: Reports no additional skin complaints - Neurologic Reports system reviewed and no additional complaints, except as documented - Psychiatric Reports system reviewed and no additional complaints, except as documented - Endocrine Reports no additional endocrine complaints - Hematologic/Lymphatic Reports system reviewed and no additional complaints, except as documented Comments: Large mass extending from anterior to the right shoulder and in the axilla. 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 Type 2 diabetes mellitus with hyperglycemia Functional capacity: uses cane/walker Patient : No Family History: Family History (Last Reviewed 01/03/22 @ 08:39 by Bernie Sullivan CMA) Father Hypertension CVD (cardiovascular disease) Cancer Mother Hypertension Surgical History: Surgical History (Last Reviewed 01/03/22 @ 08:39 by Bernie Sullivan CMA) History of appendectomy History of cholecystectomy History of skin cancer History of tonsillectomy History of total abdominal hysterectomy and bilateral salpingo-oophorectomy Social History: Social History (Last Updated 01/03/22 @ 08:40 by Bernie Sullivan CMA) Living Situation History: Household Members: Children Housing: House Are you a primary career development director to a significant other at home: No Do you presently have visiting nurse or other home services: No Alcohol History Details: 1. How often do you have a drink containing alcohol?: a. Never Tobacco History: Patient Tobacco Use Status: Never used Tobacco e-Cigarette/Vaping Use: Never Used Second Hand Smoke Exposure: No Substance Use History: Use of substances other than those prescribed or required for medical reasons : No Domestic Abuse History: Have you been hit, kicked, punched, or otherwise hurt by someone within the past year? If so, by whom?: No Advance Directives: Advance Directives Date on File: 08/03/21 Homicidal Assessment: Do you have thoughts of harming others: None Do you have a plan to hurt others: No Plan Do you have the means to hurt others: No Nutrition Assessment: Recently lost weight without trying: Yes Eating poorly because of decreased appetite: Yes Patient : No Occupation Assessmet: service: No Current occupational status: retired Current occupational exposures/hazards: No Home Medications and Allergies Home Medications Medication Instructions Recorded Confirmed Type cholecalciferol (vitamin D3) 50 50 mcg PO DAILY 02/12/20 01/03/22 History mcg (2,000 unit) capsule simvastatin 20 mg tablet 20 mg PO BEDTIME 08/02/21 01/03/22 History acetaminophen 500 mg tablet 500 mg PO Q6H PRN Pain 01/03/22 01/03/22 History Allergies Allergy/AdvReac Type Severity Reaction Status Date / Time No Known Allergies Allergy Mild NONE Verified 01/03/22 08:41 Physical Exam Vital signs: Vital Signs Temp 98.1 F 01/03/22 08:34 Pulse 89 01/03/22 08:34 Resp 12 01/03/22 08:34 BP 127/60 01/03/22 08:34 Pulse Ox 96 01/03/22 08:34 O2 Del Method 01/03/22 08:34 Intake & Output 01/02/22 01/03/22 01/03/22 18:59 06:59 18:59 Other: Weight 72.575 kg [place] Weight in Grams 71365.779 Weight 72.575 kg - Constitutional Present: moderate distress - Routine HEENT Exam Head: Present: normal inspection, normocephalic ENT: Present: mucous membranes moist - Routine Neck Exam Present: supple. Absent: lymphadenopathy - Routine Respiratory Exam Present: CTAB - Routine Cardiovascular Exam Cardiovascular: Present: RRR, S1, S2 - Routine Extremities Exam Present: nontender Comments: Large 9 cm right axillary mass. 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 Biopsy revealed moderate to poorly differentiated squamous cell carcinoma. Patient is deemed inoperable on account of the large size of the mass and her age and comorbidities. Treatment options include: 1. Radiation therapy: 2. Targeted therapy:Cemiplimab, pembrolizumab. Pembrolizumab 200 mg IV q. 3 weeks X has been studied in the keynote trial. Overall response rate was 50%, CR 17%, NC 33%. PFS 54 % and overall survival of 74%. PLAN: Will refer her for radiation therapy consultation. Appointment has been set up at [facility]. I will discuss the case with Dr. Mcmillan. She also met with our navigator. We addressed the code status and the MOLST form was completed. All her and her son's questions were answered to the satisfaction. She will return in a month for a follow-up visit. Thank you, Cc: Dr. Gisella Mcmillan. - Time Spent With Patient Time Spent with Patient (in minutes): 30 All her and her son's questions were answered to the satisfaction. She will return in a month for a follow-up visit. Thank you, Cc: Dr. Gisella Mcmillan. - Time Spent With Patient Time Spent with Patient (in minutes): 30
[2022-01-03 10:01] LABS: Alanine Aminotransferase 7 U/L (0-31); Albumin Level 3.9 g/dL (3.5-5.0); Alkaline Phosphatase 70 U/L (39-117); Anion Gap 19 (12-20); Aspartate Amino Transferase 12 U/L (5-31); Bilirubin Total 0.2 mg/dL (0.0-1.0); Blood Urea Nitrogen 20 mg/dL (9-16); Carbon Dioxide 18 mmol/L (22-29); Chloride 106 mmol/L (96-108); Creatinine Clr Calc Pharmacy 29.4; Estimated Glomerular Filt Rate 38; Glucose Random 114 mg/dL (60-115); Potassium 4.6 mmol/L (3.3-5.1); Sodium 138 mmol/L (135-145); Total Protein 6.5 g/dL (6.5-8.0)
--- NOTE | 2022-01-03 10:20 | MHC.HEMONC ---
I met with pt and her two sons following consult with Dr Thakur for squamous call carcinoma found in right axillae. She had h/0 squamous cell on skin which was removed. She is in a lot of pain and has had no relief from iboprofen, tramadol or tylenol. Dr Thakur is ordering MS Contin and oxycodone. She had one oxycodone here. I advised her on how to use oxycodone for breakthrough pain but also taking it before radiation of other appts. Bernie is working on RadOnc referral at [facility]. I also asked her to be aware of constipation and we talked about using Senna. I filled out MOLST with them at pt request. She is DNR/DNI. Sons have copy. She will f/u here in one month. Labs were drawn.
--- NOTE | 2022-01-03 10:32 | MHC.HEMONCMA ---
Pt was in for consult. Clinical summary reviewed and updated, VSS. Labs were drawn. Pt to return in 1 month. All records and labs sent to [facility].
--- NOTE | 2022-01-11 08:45 | MHC.HEMONC ---
Pt son called to report emily not working. Pt taking two at a time and no BM in 5 days. She is uncomfortable . I told him to try citrate of magnesia 1/2 bottle then wait a few hours and then take 2nd half if no BM. He will also be picking up Miralax for maintenance. She was given MS Contin and Oxycodone last week so she is likely going to need these rx for constipation. I told him to call back later with an updtate. [facility] has not gotten the RT referral so Bernie is re-sending it.
--- NOTE | 2022-01-13 11:50 | MHC.HEMONC ---
Pt son, Jose called to report that his mother had BM following MOM x 2. He wanted to know what to do for maintenance. I suggested adding Miralax in the morning and 2 Senna at HS. He knows to back off if she develops incontinence or diarrhea. She is managing pain but we reviewed need for oxycodone/Tylenol for breakthrough pain or anticipatory prior to therapy or out of house. I gave him directions on how to call on-call Provider if needed.
--- NOTE | 2022-01-27 11:21 | HO.HEMONCPA ---
Addendum entered by Nano Merino 01/27/22 16:22: PA FOR J9119- Cemiplimab-rwlc- 350mg IV Y6mdcos APPROVED. AUTH#[id number]. DOS: 01/27/2022 to 01/27/2023. DOCUMENT SCANNED IN THE CHART Original Note: LEE FOR J9119- Cemiplimab-rwlc- 350mg IV every 3 weeks REQUESTED. AWAITING DECISION
--- NOTE | 2022-01-27 11:59 | HO.HEMONCPA ---
Addendum entered by Nano Merino 01/31/22 16:43: PA FOR PET/CT SCAN APPROVED.AUTH #[id number] BY [facility] AFTER PEER to PEER REVIEW. DOS -01/27/22 to 03/27/2022 DOCUMENT SCANNED IN THE CHART Addendum entered by Nano Merino 01/31/22 15:15: PA FOR PET/CT SCAN APPROVED.AUTH #[id number] BY [facility] AFTER PEER to PEER REVIEW Original Note: PA FOR PET/CT SCAN REQUESTED. AWAITING DECISION. TRACKING #[id number]. CLINICALS FAXED TO [facility].
--- NOTE | 2022-01-30 16:16 | HO.HEMONCPA ---
I WAS TOLD BY THAT BECAUSE OF HER PEER TO PEER , THE PRIOR AUTH FOR PET CT HAS BEEN APPROVED . I SENT CLINICAL INFORMATION TO [facility] , AWAITING APPT DATE AND TIME .
--- NOTE | 2022-01-31 08:56 | MHC.HEMONCMA ---
Patient's son called to confirm chemo teach appt on 01/08/22 at 2pm and to start chemo on 02/06/22at 11:[address] Thakur's f/u appt.
[2022-02-03 14:30] LABS: MANUAL DIFF FLAG NO
[2022-02-03 14:33] LABS: Basophils Absolute Auto 0.1 X10*3/uL (0.0-0.2); Basophils Percent Auto 0.5 % (0-2); Eosinophils Absolute Auto 0.3 X10*3/uL (0.0-0.4); Eosinophils Percent Auto 2.3 % (0-4); Hematocrit 28.8 % (37.0-47.0); Hemoglobin 8.9 g/dl (12.0-16.0); Imm Gran Abs Auto 0.05 X10*3/uL (0.00-0.03); Imm Gran Pct Auto 0.5 % (0.0-0.4); Lymphocytes Percent Auto 9.2 % (20-40); Mean Corpuscular HGB Conc 30.9 g/dl (31.0-35.0); Mean Corpuscular Hemoglobin 27.5 pg (27.0-33.0); Mean Corpuscular Volume 88.9 fL (80.0-98.0); Mean Platelet Volume 10.9 fL (9.4-12.3); Monocytes Absolute Auto 1.1 X10*3/uL (0.1-1.2); Monocytes Percent Auto 10.2 % (2-11); Neutrophils Absolute Auto 8.4 x10*3/uL (2.0-8.3); Neutrophils Percent Auto 77.3 % (45-73); Platelet Count 432 X10*3/uL (160-400); Red Blood Count 3.24 X10*6/uL (4.20-5.50); White Blood Count 10.8 X10*3/uL (4.8-10.8)
[2022-02-03 14:57] LABS: Alanine Aminotransferase < 6 U/L (0-31); Albumin Level 2.9 g/dL (3.5-5.0); Alkaline Phosphatase 63 U/L (39-117); Anion Gap 16 (12-20); Aspartate Amino Transferase 7 U/L (5-31); Bilirubin Total 0.2 mg/dL (0.0-1.0); Blood Urea Nitrogen 29 mg/dL (9-16); Calcium 9.7 mg/dL (8.4-10.2); Carbon Dioxide 20 mmol/L (22-29); Chloride 108 mmol/L (96-108); Creatinine Clr Calc Pharmacy 26.9; Estimated Glomerular Filt Rate 36; Glucose Random 96 mg/dL (60-115); Potassium 5.2 mmol/L (3.3-5.1); Sodium 139 mmol/L (135-145)
[2022-02-03 15:12] LABS: Thyroid Stimulating Hormone 2.53 uIU/mL (0.32-4.0)
--- NOTE | 2022-02-03 15:22 | MHC.HEMONC ---
Chemotherapy teaching: Cemiplimab- Labs obtained. CBC/CMP/TSH/HEP B obtained. Patient accompanied by 3 sons. Potential side effects/cycle&schedule/when to department all reviewed. All questions and concerns. Consent signed. Patient reports more swelling down right arm- worsening the last few days. Encouraged patient to keep arm elevated as tolerated. Dr. Thakur updated. Order placed for ultrasound to rule out DVT. PET scan pending. Laura fernando Seaboard to call patient with date and time. Dr. Thakur instructed patient to increase Oxycodone to 10mg and take 20 minutes prior to exam to help alleviate back pain so patient can complete scan.
[2022-02-06 09:09] LABS: HBS Num1 3.85 mIU/mL (0-7.99); HBc Num1 0.04 S/CO (0.00-0.79); Hepatitis B Core Antibody Nonreactive (Nonreactive); Hepatitis B Surface Antigen Negative (Negative); ~Hepatitis B Surface Antibody NONREACTIVE (Nonreactive)
[2022-02-06 10:54] VITALS: BP 102/55; PULSE 79; RESP 18; TEMP 36.5; O2SAT 98; BMI 28.5
--- NOTE | 2022-02-06 11:20 | P.PNHO-ONC_ITS ---
Medical Summary - Medical Summary Date of Service: 02/06/22 Chief complaint: Follow-up for: Squamous cell carcinoma of the axilla. 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 CURRENT THERAPY: Here to start on immunotherapy . Interval History Interval history: Nathaly Abreu is a 86 year old lady, here for a follow-up visit. She is here to get started on Cempiplimab. She is accompanied by her 2 sons. She complains of pain in her shoulder. She has been taking oxycodone twice a day alternating with Tylenol. She does spend a lot of time in the chair/recliner. She does walk with the help of a cane or a walker. She has been fatigued. She does walk with the help of her walker at home. She denies any fever nor chills. She denies any headache no dizziness. No chest pain or trouble breathing. She denies any abdominal pain nausea vomiting heartburn indigestion. Bowels are working without any gross blood in it. She has had a colonoscopy in the distant past. Appetite is fair. Sometimes she eats very well. She has had weight loss. She denies any dysuria or hematuria. She has had pain in her right shoulder. She has a mass in the right axilla. She has had quite a bit of pain there. She grades the pain as up to a level of 8. She started taking oxycodone. With that the pain went down to a level of 5. Her legs are weak. She is depressed on account of for it has been happening to her lately. She has had multiple skin lesions removed from her face and hands in the past. PRESENTING HISTORY: She has had multiple skin cancers removed from her face and extremities, over the years. In August she fell and broke her ankle. She had to have surgery. Discharge summary: The patient admitted to the hospital under the orthopedic service for a right ankle by malleolar fracture. Her surgery was canceled due to a diabetic ulcer along the medial aspect of the ankle. Wound care was consulted who recommended dressing changes and started her on Keflex q.i.d. times 10 days. Start date for the antibiotic was August 19 and end date is August 29. During their stay, their vitals were stable, afebrile at 97.4. She has been on aspirin for DVT ppx, she has also been working with occupational therapy for ADLs. She continues to remain nonweightbearing for at least 6 weeks. Ultrasound of the head and neck from 12/26 revealed: Complex right axillary structure with thickened, irregular periphery and central anechoic fluid which may represent a enlarged necrotic lymph node or necrotic soft tissue mass. This is nonspecific. Malignant or infectious etiologies not excluded. Given recent history of trauma, a chronic hematoma is a possibility. CT scan of the chest from 11/25 revealed: IMPRESSION: Enlarging right axillary mass measuring up to 8.7 cm in size with extensive with the appearance of malignancy with necrotic central portion. There is mass impression upon the axillary vein with the appearance of thrombosis. Ultrasound of the upper extremity would be of help in further evaluation of possible deep venous thrombosis. Numerous lung nodules without significant change from study of August 01, 2021. Prominent ascending thoracic aorta at 4 cm in diameter. Heterogeneous thyroid gland with question nodules with ultrasound would be of help in further evaluation. On 12/09 she was seen by Dr. Chung. His note: 86-year-old lady presenting with a large right axillary mass which by CT scan of the chest measures about 8.7 cm with the appearance of a malignancy with necrotic central portion. Ultrasound revealed a thickened irregular periphery and central and a colic fluid whic may represent enlarged necrotic lymph node or necrotic soft tissue mass. Malignant or infectious etiology is not excluded and chronic hematoma is a possibility. 12/16, Ultrasound-guided FNA revealed: Squamous cell carcinoma, moderate to poorly differentiated. FAMILY HISTORY: Dad of lung cancer. He was a smoker. SOCIAL HISTORY: She worked in a factory. She was . She is . She had 6 children. One of them . She denies smoking. She used to drink socially. Review of Systems - Constitutional Reports system reviewed and no additional complaints, except as documented, Reports fatigue, Reports weakness, Reports weight loss, Denies fever(s) - Eyes Reports system reviewed and no additional complaints, except as documented - ENT Reports system reviewed and no additional complaints, except as documented - Cardiovascular Reports system reviewed and no additional complaints, except as documented - Respiratory Reports no additional respiratory complaints - Gastrointestinal Reports system reviewed and no additional complaints, except as documented - Genitourinary Reports no additional female genitourinary complaints - Musculoskeletal Reports system reviewed and no additional complaints, except as documented, Reports joint pain - Integumentary/Breasts Skin/Breast: Reports no additional skin complaints - Neurologic Reports system reviewed and no additional complaints, except as documented - Psychiatric Reports system reviewed and no additional complaints, except as documented - Endocrine Reports no additional endocrine complaints - Hematologic/Lymphatic Reports system reviewed and no additional complaints, except as documented - Allergic/Immunologic Reports system reviewed and no additional complaints, except as documented PMFSH Medical History: Medical History (Last Reviewed 02/01/22 @ 12:23 by ALLEN Finley) Chronic low back pain Facial basal cell cancer Finger dislocation Hiatal hernia Hypercholesterolemia Hypertension Hypothyroid Obesity (BMI 30-39.9) Osteoarthritis 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 Type 2 diabetes mellitus with hyperglycemia Functional capacity: uses cane/walker Patient : No Family History: Family History (Last Reviewed 02/01/22 @ 12:23 by ALLEN Finley) Father Hypertension CVD (cardiovascular disease) Cancer Mother Hypertension Surgical History: Surgical History (Last Reviewed 02/01/22 @ 12:23 by ALLEN Finley) History of appendectomy History of cholecystectomy History of skin cancer History of tonsillectomy History of total abdominal hysterectomy and bilateral salpingo-oophorectomy Social History: Social History (Last Reviewed 02/01/22 @ 12:23 by ALLEN Finley) Living Situation History: Household Members: Children Housing: House Are you a primary wound care technician to a significant other at home: No Do you presently have visiting nurse or other home services: No Tobacco History: Patient Tobacco Use Status: Never used Tobacco e-Cigarette/Vaping Use: Never Used Second Hand Smoke Exposure: No Advance Directives: Advance Directives Date on File: 08/03/21 Occupation Assessmet: service: No Current occupational status: retired Current occupational exposures/hazards: No Home Medications and Allergies Current Medications: Current Medications Heparin Sodium (Porcine) (Heparin Sodium,Porcine Flush 500 Unit/5 Ml Syringe) 500 unit IVFLUSH ONCE SAHARA Stop: 02/06/22 23:59 Ondansetron HCl (Ondansetron Odt 8 Mg Tab.Rapdis) 8 mg TRANSLINGU ONCE SAHARA Stop: 02/06/22 23:59 Home Medications Medication Instructions Recorded Confirmed Type cholecalciferol (vitamin D3) 50 50 mcg PO DAILY 02/12/20 01/03/22 History mcg (2,000 unit) capsule simvastatin 20 mg tablet 20 mg PO BEDTIME 08/02/21 01/03/22 History acetaminophen 500 mg tablet 500 mg PO Q6H PRN Pain 01/03/22 01/03/22 History Allergies Allergy/AdvReac Type Severity Reaction Status Date / Time No Known Allergies Allergy Mild NONE Verified 02/01/22 12:21 Exam Vital signs: Vital Signs Temp 97.7 F 02/06/22 10:54 Pulse 79 02/06/22 10:54 Resp 18 02/06/22 10:54 BP 102/55 L 02/06/22 10:54 Pulse Ox 98 02/06/22 10:54 O2 Del Method 02/06/22 10:54 Intake & Output 02/05/22 02/06/22 02/06/22 18:59 06:59 18:59 Other: Weight 73 kg [place] Weight in Grams [id number] Weight 73 kg BMI result Body Mass Index 28.5 - Constitutional Present: moderate distress - Routine HEENT Exam Head: Present: normal inspection, normocephalic Eye: Present: normal appearance ENT: Present: mucous membranes moist - Routine Neck Exam Present: full ROM - Routine Respiratory Exam Present: CTAB - Routine Cardiovascular Exam Cardiovascular: Present: RRR, S1, S2 - Routine Abdominal Exam Present: soft, nontender - Routine Rectal Exam Patient deferred: digital exam - Routine Extremities Exam Present: nontender - Routine Back/Spine/Pelvis Exam Back/Spine: Present: full ROM - Routine Skin Exam Present: intact, normal turgor - Routine Neurological Exam Present: alert, oriented X3 - Routine Psychiatric Exam Present: normal affect Data - Labs CBC & Chem 7: 02/03/22 14:14 02/03/22 14:14 Labs: 01/03/22 09:05 oxyCODONE HCl Immed Release [Roxicodone] 5 mg PO ONCE ONE 01/03/22 09:30 CEA [Carcinoembryonic Antigen] Routine Complete Blood Count Auto Diff Stat Comprehensive Met. Panel Stat 02/03/22 14:14 CMP [Comprehensive Met. Panel] Stat Complete Blood Count Auto Diff Stat Hepatitis B Profile Routine Thyroid Stimulating Hormone Routine Laboratory Last Values WBC 10.8 X10*3/uL (4.8-10.8) 02/03/22 14:14 RBC 3.24 X10*6/uL (4.20-5.50) L D 02/03/22 14:14 Hgb 8.9 g/dl (12.0-16.0) L D 02/03/22 14:14 Hct 28.8 % (37.0-47.0) L D 02/03/22 14:14 MCV 88.9 fL (80.0-98.0) 02/03/22 14:14 MCH 27.5 pg (27.0-33.0) 02/03/22 14:14 MCHC 30.9 g/dl (31.0-35.0) L 02/03/22 14:14 RDW 14.0 % (11.0-16.0) 02/03/22 14:14 Plt Count 432 X10*3/uL (160-400) H D 02/03/22 14:14 MPV 10.9 fL (9.4-12.3) 02/03/22 14:14 Immature Gran % (Auto) 0.5 % (0.0-0.4) H 02/03/22 14:14 Neut % (Auto) 77.3 % (45-73) H 02/03/22 14:14 Lymph % (Auto) 9.2 % (20-40) L 02/03/22 14:14 Forrest % (Auto) 10.2 % (2-11) 02/03/22 14:14 Eos % (Auto) 2.3 % (0-4) 02/03/22 14:14 Baso % (Auto) 0.5 % (0-2) 02/03/22 14:14 Lymph # (Auto) 1.0 X10*3/uL (1.2-4.9) L 02/03/22 14:14 Forrest # (Auto) 1.1 X10*3/uL (0.1-1.2) 02/03/22 14:14 Eos # (Auto) 0.3 X10*3/uL (0.0-0.4) 02/03/22 14:14 Baso # (Auto) 0.1 X10*3/uL (0.0-0.2) 02/03/22 14:14 Abs Immat Gran (auto) 0.05 X10*3/uL (0.00-0.03) H 02/03/22 14:14 Absolute Neuts (auto) 8.4 x10*3/uL (2.0-8.3) H 02/03/22 14:14 Absolute Nucleated RBC 0.000 X10*3/uL (0.0-0.012) 02/03/22 14:14 Nucleated RBC % (auto) 0.0 /100WBC (0.0-0.2) 02/03/22 14:14 Sodium 139 mmol/L (135-145) 02/03/22 14:14 Potassium 5.2 mmol/L (3.3-5.1) H 02/03/22 14:14 Chloride 108 mmol/L (96-108) 02/03/22 14:14 Carbon Dioxide 20 mmol/L (22-29) L 02/03/22 14:14 Anion Gap 16 (12-20) 02/03/22 14:14 BUN 29 mg/dL (9-16) H 02/03/22 14:14 Creatinine 1.40 mg/dL (0.5-1.4) 02/03/22 14:14 Estim Creat Clear Calc 26.9 02/03/22 14:14 Estimated GFR 36 02/03/22 14:14 Random Glucose 96 mg/dL (60-115) 02/03/22 14:14 Calcium 9.7 mg/dL (8.4-10.2) 02/03/22 14:14 Total Bilirubin 0.2 mg/dL (0.0-1.0) 02/03/22 14:14 AST 7 U/L (5-31) D 02/03/22 14:14 ALT < 6 U/L (0-31) 02/03/22 14:14 Alkaline Phosphatase 63 U/L (39-117) 02/03/22 14:14 Total Protein 5.0 g/dL (6.5-8.0) L D 02/03/22 14:14 Albumin 2.9 g/dL (3.5-5.0) L D 02/03/22 14:14 Carcinoembryonic Ag 3.80 ng/mL 01/03/22 09:30 TSH 2.53 uIU/mL (0.32-4.0) 02/03/22 14:14 Hep Bs Antigen Negative (Negative) 02/03/22 14:14 Hep Bs Antibody NONREACTIVE (Nonreactive) 02/03/22 14:14 Hep B Core Total Ab Nonreactive (Nonreactive) 02/03/22 14:14 Assessment and Plan Patient Active problem list reviewed?: Yes (1) 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 Biopsy revealed moderate to poorly differentiated squamous cell carcinoma. Patient is deemed inoperable on account of the large size of the mass and her age and comorbidities. Treatment options include: 1. Targeted therapy:Cemiplimab: Response rate: 68%. 2. pembrolizumab: Pembrolizumab 200 mg IV q. 3 weeks X has been studied in the keynote trial. Overall response rate was 50%, CR 17%, AK 33%. PFS 54 % and overall survival of 74%. We addressed the code status and the MOLST form was completed, last time. She is here to get started on the Cemiplimab. Details of the regimen including potential side effects of hypersensitivity reaction, skin rash, nausea vomiting diarrhea, cardiopulmonary toxicity, pancytopenia, risk of infection, need for antibiotics and blood transfusions were all addressed with her, in the presence of her 2 sons. She understands and is willing to proceed. She tolerated the treatment uneventfully today. Her PET scan done on 02/07: IMPRESSION: 1. The previously visualized large right axillary mass is markedly FDG avid in its periphery and is consistent with a malignant lesion. Marked central photopenia is likely due to extensive central necrosis. 2. Multiple stable appearing pulmonary nodules are present, most too small to be characterized on the FDG PET images, but the larger of these do not show abnormal FDG activity, suggesting a benign etiology. Continued monitoring of these with diagnostic CT imaging is recommended. 3. No additional abnormalities suspicious for metastatic or other malignant lesions are noted. PLAN: Will continue to monitor her response. Will then see if surgery would be feasible, based upon her response. All her and her son's questions were answered to the satisfaction. She will return in a month for a follow-up visit. Thank you, Cc: Dr. Gisella Mcmillan. - Time Spent With Patient Time Spent with Patient (in minutes): 30
[2022-02-06] MEDS: Ondansetron ODT 8 MG TAB.RAPDIS TRANSLINGU (11:47)
[2022-02-06] MEDS: oxyCODONE HCl Immed Release 5 MG TABLET PO (12:48)
--- NOTE | 2022-02-06 14:53 | MHC.HEMONC ---
Pt here for C1D1 Cemiplimab. Pt states she has had one episode each of diarrhea and nausea recently. Right hand and arm edematous-pt states she has some numbness and tingling in right hand. States she has pain in right shoulder which she takes pain medication with relief. Labs draw last week reviewed-okay to receive treatment today. #24 angio inserted in left forearm with blood return noted. Pre medicated with zofran. Cemiplimab given as directed-tolerated well. Oxycodone 5 mg given for 7/10 right shoulder pain per pt request. Dr Thakur into see pt. Pt's son's present for visit. Next appointment scheduled in 3 weeks. Discharge packet given. Peripheral IV removed-no edema or redness at site. Pt and family instructed to call clinic with any concerns or side effects. Family and pt verbalize understanding of nformation given
--- NOTE | 2022-02-06 15:04 | HO.HEMONCPA ---
PATIENT IS SCHEDULED FOR PET CT ON 02/14/22 AT 11:15AM
--- NOTE | 2022-02-07 12:20 | MHC.HEMONC ---
Addendum entered by Nano Merino 02/08/22 12:01: Pt's son Regino called. Pt's at home Covid19 test result is negative Addendum entered by Nano Merino 02/08/22 09:48: Spoke with pt's son regarding pt exposure to positive Covid19 test. Pt's son opted to for an at-home test. Family will call back with result. Original Note: LVM for pt to call me back
[2022-02-13 10:26] LABS: MANUAL DIFF FLAG NO
[2022-02-13 10:46] LABS: Basophils Percent Auto 0.4 % (0-2); Eosinophils Absolute Auto 0.2 X10*3/uL (0.0-0.4); Eosinophils Percent Auto 2.1 % (0-4); Hematocrit 29.5 % (37.0-47.0); Hemoglobin 8.8 g/dl (12.0-16.0); Imm Gran Abs Auto 0.06 X10*3/uL (0.00-0.03); Imm Gran Pct Auto 0.5 % (0.0-0.4); Lymphocytes Absolute Auto 0.6 X10*3/uL (1.2-4.9); Lymphocytes Percent Auto 5.4 % (20-40); Mean Corpuscular HGB Conc 29.8 g/dl (31.0-35.0); Mean Corpuscular Hemoglobin 26.5 pg (27.0-33.0); Mean Corpuscular Volume 88.9 fL (80.0-98.0); Mean Platelet Volume 11.1 fL (9.4-12.3); Monocytes Absolute Auto 1.4 X10*3/uL (0.1-1.2); Monocytes Percent Auto 12.3 % (2-11); Neutrophils Absolute Auto 8.9 x10*3/uL (2.0-8.3); Neutrophils Percent Auto 79.3 % (45-73); Platelet Count 353 X10*3/uL (160-400); Red Blood Count 3.32 X10*6/uL (4.20-5.50); Red Cell Distribution Width 14.4 % (11.0-16.0); White Blood Count 11.2 X10*3/uL (4.8-10.8)
[2022-02-13 11:03] LABS: Alanine Aminotransferase 7 U/L (0-31); Albumin Level 2.9 g/dL (3.5-5.0); Alkaline Phosphatase 59 U/L (39-117); Anion Gap 17 (12-20); Aspartate Amino Transferase 7 U/L (5-31); Bilirubin Total 0.3 mg/dL (0.0-1.0); Blood Urea Nitrogen 33 mg/dL (9-16); Calcium 9.3 mg/dL (8.4-10.2); Carbon Dioxide 18 mmol/L (22-29); Chloride 107 mmol/L (96-108); Creatinine Clr Calc Pharmacy 24.6; Estimated Glomerular Filt Rate 32; Glucose Random 98 mg/dL (60-115); Potassium 5.3 mmol/L (3.3-5.1); Sodium 137 mmol/L (135-145); Total Protein 4.9 g/dL (6.5-8.0)
--- NOTE | 2022-02-13 15:09 | MHC.HEMONC ---
Post chemo labs obtained and reviewed. Patient feels well- no reported side effects. Pet scan results given as well. Patient to return 02/27 for treatment.
== END 2022-02-24 | disposition home or self-care (01) ==
LOC: HO.ONC 10:00
PROVIDERS: PCP Internal Medicine; Referring Provider Surgery; Visit Provider Internal Medicine Medical Oncology
DX: C77.3 Secondary and unspecified malignant neoplasm of axilla and upper limb lymph nodes (principal); C80.1 Malignant (primary) neoplasm, unspecified; E03.9 Hypothyroidism, unspecified; Z85.828 Personal history of other malignant neoplasm of skin
CPT/HCPCS: 36415; 80053; 82378; 84443; 85025; 86704; 86706; 87340; 96413; 99204; 99211; 99214; J9119